=== PATIENT | female | born 1980 | race Two or more races ===

== ENCOUNTER 2019-08-24 10:00 | Inpatient (IN) | payer BC, MEDICAID ==
[~2019-08-24] VITALS: Ht 154.9 cm; Wt 76.2 kg
[2019-08-24 10:02] VITALS: BP 116/54
--- NOTE | 2019-08-24 10:05 | NUR ---
ED Nurse Note: Patient walked into ED from home c/o abdominal pain since last night radiating to back. patient denies n/v/d. patient unable to void at this time. patient provided with hospital gown.
--- NOTE | 2019-08-24 10:15 | NUR ---
HAND-OFF: Report given to Jaja GHOSH.
[2019-08-24] MEDS ORDERED: Dicyclomine HCl 10mg/5ml oral soln ORAL ONE (10:30)
[2019-08-24] MEDS ORDERED: Lidocaine 2% Visc 15ml soln ORAL ONE (10:30)
[2019-08-24] MEDS ORDERED: Mylanta II UD 30ml ORAL ONE (10:30)
[2019-08-24 10:46] LABS: BASOPHILS % (AUTO) 0.4 % (0.0-2.0); EOSINOPHILS % (AUTO) 0.5 % (0.0-3.0); HEMATOCRIT 34.2 % (37.0-47.0); HEMOGLOBIN 11.5 G/DL (12.0-16.0); LYMPHOCYTES % (AUTO) 12.6 % (20.0-45.0); MEAN CORPUSCULAR VOLUME 84 FL (80-99); MONOCYTES % (AUTO) 4.9 % (1.0-10.0); NEUTROPHILS % (AUTO) 81.6 % (45.0-75.0); PLATELET COUNT 268 K/UL (150-450); RED BLOOD COUNT 4.08 M/UL (4.20-5.40); RED CELL DISTRIBUTION WIDTH 11.9 % (11.6-14.8); WHITE BLOOD COUNT 10.2 K/UL (4.8-10.8)
[2019-08-24 10:56] LABS: APPEARANCE,URINE CLEAR; BILIRUBIN, URINE NEGATIVE (NEGATIVE); GLUCOSE, URINE (UA) NEGATIVE (NEGATIVE); KETONES,URINE NEGATIVE (NEGATIVE); LEUKOCYTE ESTERASE ,URINE 1+ (NEGATIVE); NITRITE,URINE NEGATIVE (NEGATIVE); PH,URINE 7 (4.5-8.0); PROTEIN,URINE NEGATIVE (NEGATIVE); UROBILINOGEN,URINE 1 MG/DL (0.0-1.0)
[2019-08-24 10:58] LABS: COLOR,URINE YELLOW
[2019-08-24 11:00] LABS: ANION GAP 11 mmol/L (5-15); BLOOD UREA NITROGEN 16 mg/dL (7-18); CALCIUM 8.5 MG/DL (8.5-10.1); CARBON DIOXIDE 23 MMOL/L (21-32); CHLORIDE 105 MMOL/L (98-107); CREATININE 0.7 MG/DL (0.55-1.30); POTASSIUM 4.1 MMOL/L (3.5-5.1); SODIUM 139 MMOL/L (136-145)
[2019-08-24 11:20] LABS: ALANINE AMINOTRANSFERASE 216 U/L (12-78); ALBUMIN 3.5 G/DL (3.4-5.0); ALBUMIN/GLOBULIN RATIO 0.9 (1.0-2.7); ALKALINE PHOSPHATASE 142 U/L (46-116); ASPARTATE AMINO TRANSFERASE 315 U/L (15-37); BILIRUBIN,DIRECT 0.7 MG/DL (0.0-0.3); BILIRUBIN,TOTAL 1.1 MG/DL (0.2-1.0)
[2019-08-24] MEDS ORDERED: Morphine Sulfate 4mg/ml Inj (IV USE ONLY) IVP ONE (11:30)
--- NOTE | 2019-08-24 11:31 | Emergency Room Report ---
History of Present Illness General Chief Complaint: Abdominal Pain Source: Patient Present Illness HPI Patient is a 38-year-old female presents after increased epigastric pain radiating to her back. Reports having prior history of similar symptoms in the past but not this severe. Pain is worse with supine position. Initially wax and wane but is currently constant. Denies any fever. Denies any vomiting. Pain is worse with food. Prior history of lower abdominal surgery. Denies any recent diarrhea. No recent cough. Previously been healthy. COVID-19 risk:Contact w/high r: No COVID-19 risk:Travel to affect: No Has patient experienced cr: No Allergies: Coded Allergies: SULFAMETHOXAZOLE (Verified Allergy, Unknown, 08/24/19) TRIMETHOPRIM (Verified Allergy, Unknown, 08/24/19) Uncoded Allergies: SULFA (Allergy, Unknown, 08/24/19) Patient History Past Medical History: see triage record Last Menstrual Period: 08/12/19 Now: No Reviewed Nursing Documentation: PMH: Agreed; PSxH: Agreed Nursing Documentation-PMH Past Medical History: No Stated History Review of Systems All Other Systems: negative except mentioned in HPI Physical Exam Vital Signs Date Time Temp Pulse Resp B/P (MAP) Pulse Ox O2 Delivery O2 Flow Rate FiO2 08/24/19 10:02 98.2 87 17 116/54 98 Room Air Sp02 EP Interpretation: reviewed, normal General Appearance: normal inspection, well appearing, no apparent distress, alert, obese Head: atraumatic ENT: normal ENT inspection, hearing grossly normal, normal voice Neck: normal inspection, full range of motion, supple, no bony tend Respiratory: normal inspection, lungs clear, normal breath sounds, no respiratory distress, no retraction, no wheezing Cardiovascular #1: regular rate, rhythm, no edema Gastrointestinal: normal bowel sounds, non tender, soft, no guarding, no hernia , tenderness - epiGastric tenderness Genitourinary: no CVA tenderness Musculoskeletal: normal inspection, back normal, normal range of motion Neurologic: alert, motor strength/tone normal, 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 Differential diagnosis include was not limited to ulcer, gastritis, pancreatitis, cholecystitis among others. Because of complexity of patient's case laboratory tests and imaging studies were ordered. Patient was noted to have markedly abnormal lipase as well as liver function test consistent with possible gallstone pancreatitis. Abdominal ultrasound was ordered. She was given pain medications. She started on IV fluids.Sonographic Zee sign is negative. Ultrasound imaging showed multiple gallstones including gallstone in the gallbladder neck. Laboratory testing showed markedly elevated lipase as well as liver function test consistent with possible gallstone pancreatitis. Dr. Fercho Zelaya was contacted for Dr. Barth due to panel phyisician. Labs Test 08/24/19 10:30 08/24/19 10:45 White Blood Count 10.2 K/UL (4.8-10.8) Red Blood Count 4.08 M/UL (4.20-5.40) Hemoglobin 11.5 G/DL (12.0-16.0) Hematocrit 34.2 % (37.0-47.0) Mean Corpuscular Volume 84 FL (80-99) Mean Corpuscular Hemoglobin 28.2 PG (27.0-31.0) Mean Corpuscular Hemoglobin Concent 33.6 G/DL (32.0-36.0) Red Cell Distribution Width 11.9 % (11.6-14.8) Platelet Count 268 K/UL (150-450) Mean Platelet Volume 6.5 FL (6.5-10.1) Neutrophils (%) (Auto) 81.6 % (45.0-75.0) Lymphocytes (%) (Auto) 12.6 % (20.0-45.0) Monocytes (%) (Auto) 4.9 % (1.0-10.0) Eosinophils (%) (Auto) 0.5 % (0.0-3.0) Basophils (%) (Auto) 0.4 % (0.0-2.0) Sodium Level 139 MMOL/L (136-145) Potassium Level 4.1 MMOL/L (3.5-5.1) Chloride Level 105 MMOL/L (98-107) Carbon Dioxide Level 23 MMOL/L (21-32) Anion Gap 11 mmol/L (5-15) Blood Urea Nitrogen 16 mg/dL (7-18) Creatinine 0.7 MG/DL (0.55-1.30) Estimat Glomerular Filtration Rate > 60 mL/min (>60) Glucose Level 118 MG/DL (74-106) Calcium Level 8.5 MG/DL (8.5-10.1) Total Bilirubin 1.1 MG/DL (0.2-1.0) Direct Bilirubin 0.7 MG/DL (0.0-0.3) Aspartate Amino Transf (AST/SGOT) 315 U/L (15-37) Alanine Aminotransferase (ALT/SGPT) 216 U/L (12-78) Alkaline Phosphatase 142 U/L (46-116) Troponin I 0.000 ng/mL (0.000-0.056) Total Protein 7.4 G/DL (6.4-8.2) Albumin 3.5 G/DL (3.4-5.0) Globulin 3.9 g/dL Albumin/Globulin Ratio 0.9 (1.0-2.7) Lipase 1023 U/L (73-393) Urine Color Yellow Urine Appearance Clear Urine pH 7 (4.5-8.0) Urine Specific [place] 1.010 (1.005-1.035) Urine Protein Negative (NEGATIVE) Urine Glucose (UA) Negative (NEGATIVE) Urine Ketones Negative (NEGATIVE) Urine Blood 2+ (NEGATIVE) Urine Nitrite Negative (NEGATIVE) Urine Bilirubin Negative (NEGATIVE) Urine Urobilinogen 1 MG/DL (0.0-1.0) Urine Leukocyte Esterase 1+ (NEGATIVE) Urine RBC 2-4 /HPF (0 - 2) Urine WBC 0-2 /HPF (0 - 2) Urine Squamous Epithelial Cells Few /LPF (NONE/OCC) Urine Bacteria Few /HPF (NONE) Urine HCG, Qualitative Negative (NEGATIVE) Last Vital Signs Date Time Temp Pulse Resp B/P (MAP) Pulse Ox O2 Delivery O2 Flow Rate FiO2 08/24/19 10:13 87 17 Room Air 08/24/19 10:02 98.2 116/54 (74) 98 Status: unchanged Disposition: ADMITTED INPATIENT Condition: Serious Scripts No Active Prescriptions or Reported Meds Referrals: NOT CHOSEN IPA/,REFERRING (PCP) Avelino Hawk MD Aug 24, 2019 11:31
--- NOTE | 2019-08-24 12:11 | Diagnostic Imaging Report ---
Indication: Abdominal pain Technique: Grayscale and duplex Doppler imaging of the abdomen performed. Comparison: None Findings: The liver is unremarkable except for small cyst in the right hepatic lobe measuring 2 cm. Doppler interrogation of the main portal vein shows patency with hepatopedal, monophasic flow. There is no biliary ductal dilatation identified. Gallbladder is notable for multiple stones. Sonographic Zee sign is negative per technologist. There demonstrated part of the pancreas, aorta and IVC show no definite abnormalities. Both kidneys appear unremarkable. There is no hydronephrosis. IMPRESSION: Cholelithiasis Liver cyst
--- NOTE | 2019-08-24 12:35 | General Progress Note ---
Assessment/Plan Assessment/Plan: gallstone pancreatitis npo ivf pain control MRCP ERCP if needed repeat labs in am surg consult Subjective Allergies: Coded Allergies: SULFAMETHOXAZOLE (Verified Allergy, Unknown, 08/24/19) TRIMETHOPRIM (Verified Allergy, Unknown, 08/24/19) Uncoded Allergies: SULFA (Allergy, Unknown, 08/24/19) Objective Last 24 Hour Vital Signs Date Time Temp Pulse Resp B/P (MAP) Pulse Ox O2 Delivery O2 Flow Rate FiO2 08/24/19 12:05 98.2 08/24/19 10:13 87 17 Room Air 08/24/19 10:02 98.2 87 17 116/54 (74) 98 Room Air 08/24/19 10:02 98.2 87 17 116/54 98 Room Air Laboratory Tests 08/24/19 10:30: White Blood Count 10.2, Red Blood Count 4.08L, Hemoglobin 11.5L, Hematocrit 34.2L, Mean Corpuscular Volume 84, Mean Corpuscular Hemoglobin 28.2, Mean Corpuscular Hemoglobin Concent 33.6, Red Cell Distribution Width 11.9, Platelet Count 268, Mean Platelet Volume 6.5, Neutrophils (%) (Auto) 81.6H, Lymphocytes ( %) (Auto) 12.6L, Monocytes (%) (Auto) 4.9, Eosinophils (%) (Auto) 0.5, Basophils (%) (Auto) 0.4, Sodium Level 139, Potassium Level 4.1, Chloride Level 105, Carbon Dioxide Level 23, Anion Gap 11, Blood Urea Nitrogen 16, Creatinine 0.7, Estimat Glomerular Filtration Rate > 60, Glucose Level 118H, Calcium Level 8.5, Total Bilirubin 1.1H, Direct Bilirubin 0.7H, Aspartate Amino Transf (AST/ SGOT) 315H, Alanine Aminotransferase (ALT/SGPT) 216H, Alkaline Phosphatase 142H , Troponin I 0.000, Total Protein 7.4, Albumin 3.5, Globulin 3.9, Albumin/ Globulin Ratio 0.9L, Lipase 1023H 08/24/19 10:45: Urine Color Yellow, Urine Appearance Clear, Urine pH 7, Urine Specific [place] 1.010, Urine Protein Negative, Urine Glucose (UA) Negative, Urine Ketones Negative, Urine Blood 2+H, Urine Nitrite Negative, Urine Bilirubin Negative, Urine Urobilinogen 1H, Urine Leukocyte Esterase 1+H, Urine RBC 2-4H, Urine WBC 0 -2, Urine Squamous Epithelial Cells Few, Urine Bacteria Few, Urine HCG, Qualitative Negative Height (Feet): 5 Height (Inches): 2.00 Weight (Pounds): 170 General Appearance: alert EENT: normal ENT inspection Neck: supple Cardiovascular: normal rate Respiratory/Chest: decreased breath sounds Abdomen: normal bowel sounds, non tender, soft Extremities: non-tender Kev Gross MD Aug 24, 2019 12:35
[2019-08-24 12:37] VITALS: BP 119/55
[2019-08-24] MEDS ORDERED: LR 1000ml 1,000 ML IV SCH (13:15)
[2019-08-24] MEDS ORDERED: DiphenhydrAMINE 25mg Tab ORAL PRN (13:15)
[2019-08-24] MEDS ORDERED: HYDROmorphone 1mg/ml Carpuject IVP PRN (13:15)
[2019-08-24] MEDS ORDERED: LORazepam Inj 2mg/ml 1ml IV PRN (13:15)
--- NOTE | 2019-08-24 13:15 | NUR ---
ED Nurse Note: Pt taken to MRI.
[2019-08-24 15:47] VITALS: BP 131/68
--- NOTE | 2019-08-24 15:53 | NUR ---
ED Nurse Note: Report given to Nicolas GHOSH.
--- NOTE | 2019-08-24 15:57 | Diagnostic Imaging Report ---
Indication: Abdominal pain. Cholelithiasis. Elevated lipase Technique: MRI of the abdomen was performed in a 1.5 Kate magnet. Pulse sequences obtained include coronal and axial T2 single shot fast spin echo breathhold and respiratory gated coronal T2 3-D M.R.C.P.; this data set was displayed in different projections or MIPs. In addition, multiple coronal oblique thin T2 weighted, fat saturated SE sequences obtained through the CBD. Comparison: None Findings: The biliary ducts are not dilated within the liver or at the level of the pancreas and nj hepatis. The CBD is normal in caliber. A portion of the mid CBD is not seen which is likely related to breathing artifact. There are multiple gallstones present. Pancreas is unremarkable. There are no signs of pancreatitis on this study. (Lipase is more sensitive then cross-sectional imaging for acute pancreatitis). There is a 2.8 cm cyst in the right lobe of the liver. There is no free fluid. IMPRESSION: No biliary ductal dilatation or evidence of choledocholithiasis. Short segment of the mid CBD not seen likely related to breathing artifact. Cholelithiasis. 2.8 cm liver cyst.
--- NOTE | 2019-08-24 16:16 | NUR ---
ED Nurse Note: Cleared by MD to be admitted and transported to [facility] floor. Pt transferred via [facility] all belongings. Pt stable upon transport.
--- NOTE | 2019-08-24 16:42 | History and Physical ---
History of Present Illness General Date patient seen: Aug 24, 2019 Time patient seen: 16:20 Reason for Hospitalization: Abdominal Pain Present Illness HPI 38 year old woman, no prior medical history except for mild obesity who presented to the ED with complaints of epigastric pain radiating to her back. She reports having prior history of similar symptoms in the past but not this severe. Pain is constant. Denies any fever, chills, nausea, vomiting. Pain is worse with food. Prior history of lower abdominal surgery. In ED she was found to have cholelithiasis and elevated lipase suggestive of gallstone pancreatitis. MRCP done while in ED without evidence of choledocholithiasis. Patient referred for medical admission. Denies alcohol or drug use. Family Hx: Multiple family members with GB removal Social Hx: No alcohol use Allergies: Coded Allergies: SULFAMETHOXAZOLE (Verified Allergy, Unknown, 08/24/19) TRIMETHOPRIM (Verified Allergy, Unknown, 08/24/19) Uncoded Allergies: SULFA (Allergy, Unknown, 08/24/19) Medication History No Active Prescriptions or Reported Meds Patient History Healthcare decision maker Resuscitation status Advanced Directive on File Review of Systems Constitutional: Denies: chills, fever Respiratory: Denies: cough, orthopnea Cardiovascular: Denies: chest pain, edema Gastrointestinal: Reports: abdominal pain; Denies: constipation, diarrhea, nausea, vomiting Genitourinary: Denies: dysuria Musculoskeletal: Denies: back pain, gout Skin: Denies: rash Neurological: Denies: headache Physical Exam General Appearance: no apparent distress, alert HEENT: atraumatic, anicteric Neck: normal alignment, supple Respiratory/Chest: lungs clear, normal breath sounds Cardiovascular/Chest: normal rate, regular rhythm Abdomen: soft, no organomegaly Extremities: non-tender, normal inspection Neurologic: no motor/sensory deficits, alert, oriented x 3 Last 24 Hour Vital Signs Date Time Temp Pulse Resp B/P (MAP) Pulse Ox O2 Delivery O2 Flow Rate FiO2 08/24/19 16:17 98.7 82 18 126/73 97 Room Air 08/24/19 15:47 98.2 80 18 131/68 99 Room Air 08/24/19 12:37 98.2 76 16 119/55 98 Room Air 08/24/19 12:05 98.2 08/24/19 10:13 87 17 Room Air 08/24/19 10:02 98.2 87 17 116/54 (74) 98 Room Air 08/24/19 10:02 98.2 87 17 116/54 98 Room Air Laboratory Tests Test 08/24/19 10:30 08/24/19 10:45 White Blood Count 10.2 K/UL (4.8-10.8) Red Blood Count 4.08 M/UL (4.20-5.40) L Hemoglobin 11.5 G/DL (12.0-16.0) L Hematocrit 34.2 % (37.0-47.0) L Mean Corpuscular Volume 84 FL (80-99) Mean Corpuscular Hemoglobin 28.2 PG (27.0-31.0) Mean Corpuscular Hemoglobin Concent 33.6 G/DL (32.0-36.0) Red Cell Distribution Width 11.9 % (11.6-14.8) Platelet Count 268 K/UL (150-450) Mean Platelet Volume 6.5 FL (6.5-10.1) Neutrophils (%) (Auto) 81.6 % (45.0-75.0) H Lymphocytes (%) (Auto) 12.6 % (20.0-45.0) L Monocytes (%) (Auto) 4.9 % (1.0-10.0) Eosinophils (%) (Auto) 0.5 % (0.0-3.0) Basophils (%) (Auto) 0.4 % (0.0-2.0) Sodium Level 139 MMOL/L (136-145) Potassium Level 4.1 MMOL/L (3.5-5.1) Chloride Level 105 MMOL/L (98-107) Carbon Dioxide Level 23 MMOL/L (21-32) Anion Gap 11 mmol/L (5-15) Blood Urea Nitrogen 16 mg/dL (7-18) Creatinine 0.7 MG/DL (0.55-1.30) Estimat Glomerular Filtration Rate > 60 mL/min (>60) Glucose Level 118 MG/DL (74-106) H Calcium Level 8.5 MG/DL (8.5-10.1) Total Bilirubin 1.1 MG/DL (0.2-1.0) H Direct Bilirubin 0.7 MG/DL (0.0-0.3) H Aspartate Amino Transf (AST/SGOT) 315 U/L (15-37) H Alanine Aminotransferase (ALT/SGPT) 216 U/L (12-78) H Alkaline Phosphatase 142 U/L (46-116) H Troponin I 0.000 ng/mL (0.000-0.056) Total Protein 7.4 G/DL (6.4-8.2) Albumin 3.5 G/DL (3.4-5.0) Globulin 3.9 g/dL Albumin/Globulin Ratio 0.9 (1.0-2.7) L Lipase 1023 U/L (73-393) H Urine Color Yellow Urine Appearance Clear Urine pH 7 (4.5-8.0) Urine Specific [place] 1.010 (1.005-1.035) Urine Protein Negative (NEGATIVE) Urine Glucose (UA) Negative (NEGATIVE) Urine Ketones Negative (NEGATIVE) Urine Blood 2+ (NEGATIVE) H Urine Nitrite Negative (NEGATIVE) Urine Bilirubin Negative (NEGATIVE) Urine Urobilinogen 1 MG/DL (0.0-1.0) H Urine Leukocyte Esterase 1+ (NEGATIVE) H Urine RBC 2-4 /HPF (0 - 2) H Urine WBC 0-2 /HPF (0 - 2) Urine Squamous Epithelial Cells Few /LPF (NONE/OCC) Urine Bacteria Few /HPF (NONE) Urine HCG, Qualitative Negative (NEGATIVE) Height (Feet): 5 Height (Inches): 2.00 Weight (Pounds): 170 Medications Current Medications Medications (Trade) Dose Ordered Sig/Maureen Route PRN Reason Start Time Stop Time Status Last Admin Dose Admin Acetaminophen (Tylenol) 650 mg Q4H PRN ORAL Mild Pain (Pain Scale 1-3) 08/24/19 13:15 09/23/19 13:14 Dextrose (Dextrose 50%) 25 ml Q30M PRN IV Hypoglycemia 08/24/19 13:15 11/22/19 13:14 Dextrose (Dextrose 50%) 50 ml Q30M PRN IV Hypoglycemia 08/24/19 13:15 11/22/19 13:14 Diphenhydramine HCl (Benadryl) 25 mg Q6H PRN ORAL Itching/Pruritis 08/24/19 13:15 09/23/19 13:14 Heparin Sodium (Porcine) (Heparin 5000 units/ml) 5,000 units EVERY 12 HOURS SUBQ 08/24/19 21:00 5/7/20 20:59 Hydromorphone HCl (Dilaudid) 1 mg Q4H PRN IVP Moderate Pain (Pain Scale 4-6) 08/24/19 13:15 08/31/19 13:14 Hydromorphone HCl (Dilaudid) 2 mg Q4H PRN IVP Severe Pain (Pain Scale 7-10) 08/24/19 13:15 08/31/19 13:14 Lactated Ringer's 1,000 ml @ 125 mls/hr Q8H IV 08/24/19 18:00 09/23/19 17:59 Lorazepam (Ativan 2mg/ml 1ml) 0.5 mg Q4H PRN IV For Anxiety 08/24/19 13:15 08/31/19 13:14 Ondansetron HCl (Zofran) 4 mg Q6H PRN IVP Nausea & Vomiting 08/24/19 13:15 09/23/19 13:14 Assessment/Plan Assessment/Plan: 38 year old woman with mild obesity who presented to ED with abdominal pain radiating to her back. #Gallstone pancreatitis #Obesity -admit to medical service -NPO, IV fluids with LR -Symptomatic care, IV Dilaudid and Zofran -repeat CMP and lipase in AM -MRCP results reviewed -GI and Surgery consulted, possible cholecystectomy this admission -Lifestyle modifications as outpatient VTE PPx HSQ Full Code I spent 70 minutes on this patient's case, and >50% was dedicated to counseling and/or care coordination. Jamal Crawley MD Aug 24, 2019 16:42
--- NOTE | 2019-08-24 16:47 | NUR ---
NURSE NOTES: I received telephone report DAVINA Wilkinson form ER; patient came the floor by reji; alert x4; on room air, no sing of distress and shortness of breath; no sing of chest pain; IV Left AC 20 flushes well; belongings singed by transferring and receiving nurse; side rails up x2, breaks engaged, bed at lowest position, call light within reach; patient NPO, patient aware and sing at the bed side; will call MD to get admission order;
[2019-08-24 16:50] VITALS: BP 100/73
--- NOTE | 2019-08-24 17:08 | Consultation ---
History of Present Illness General Date patient seen: Aug 24, 2019 Reason for Hospitalization: Abdominal Pain Present Illness HPI This is a very pleasant 38-year-old female with no prior medical conditions who presented to [facility] complaining of worsening abdominal pain with associated nausea. Patient states about a week ago she had an episode of epigastric right upper quadrant abdominal pain but resolved on its own. She did well since then recovered but yesterday began to have worsening her epigastric abdominal pain with nausea but no emesis. Came to emergency room for evaluation at which time was identified to have pancreatitis with etiology being cholelithiasis given work-up and findings. Surgery was called to evaluate and assist with care. Patient seen, patient evaluated, chart reviewed. Patient states that pain is better after given narcotic pain medication but now that is wearing off she starts no pain again. Currently no nausea vomiting fever chills Allergies: Coded Allergies: SULFAMETHOXAZOLE (Verified Allergy, Unknown, 08/24/19) TRIMETHOPRIM (Verified Allergy, Unknown, 08/24/19) Uncoded Allergies: SULFA (Allergy, Unknown, 08/24/19) Medication History No Active Prescriptions or Reported Meds Patient History History Provided By: Patient, Medical Record, PMD Healthcare decision maker Resuscitation status Advanced Directive on File Past Medical/Surgical History Past Medical/Surgical History: (1) Gallstone (2) Acute gallstone pancreatitis (3) Pancreatitis Review of Systems Review of Symptoms General ROS: no weight loss or fever Psychological ROS: no depression or mood changes, no memory loss Ophthalmic ROS: no visual changes or eye irritation ENT ROS: no nasal congestion, hearing loss, dizziness Allergy and Immunology ROS: no allergic symptoms or urticaria Hematological and Lymphatic ROS: no swollen glands, unusual bleeding or bruising Endocrine ROS: no polyuria, polydipsia, weight changes, temperature intolerance Respiratory ROS: no cough, shortness of breath, or wheezing Cardiovascular ROS: no chest pain or dyspnea on exertion Gastrointestinal ROS: abdominal pain, no bright red blood in stool. Musculoskeletal ROS: no myalgias or arthralgias Neurological ROS: no TIA or stroke symptoms Dermatological ROS: no new or changing skin lesions, rashes or pruritis Physical Exam Physical Exam General appearance: alert, cooperative, no distress, appears stated age Head: Normocephalic, without obvious abnormality, atraumatic Eyes: conjunctivae/corneas clear. PERRL, EOM's intact. Fundi benign Throat: Lips, mucosa, and tongue normal. Teeth and gums normal Neck: supple, symmetrical, trachea midline, no adenopathy, thyroid: not enlarged, symmetric, no tenderness/mass/nodules, no carotid bruit and no JVD Lungs: clear to auscultation bilaterally Heart: regular rate and rhythm, S1, S2 normal, no murmur, click, rub or gallop Abdomen: soft, epi and ruq tender. Bowel sounds normal. No masses, no organomegaly Extremities: extremities normal, atraumatic, no cyanosis or edema Pulses: 2+ and symmetric Skin: Skin color, texture, turgor normal. No rashes or lesions Neurologic: Grossly normal Last 24 Hour Vital Signs Date Time Temp Pulse Resp B/P (MAP) Pulse Ox O2 Delivery O2 Flow Rate FiO2 08/24/19 16:17 98.7 82 18 126/73 97 Room Air 08/24/19 15:47 98.2 80 18 131/68 99 Room Air 08/24/19 12:37 98.2 76 16 119/55 98 Room Air 08/24/19 12:05 98.2 08/24/19 10:13 87 17 Room Air 08/24/19 10:02 98.2 87 17 116/54 (74) 98 Room Air 08/24/19 10:02 98.2 87 17 116/54 98 Room Air Laboratory Tests Test 08/24/19 10:30 08/24/19 10:45 White Blood Count 10.2 K/UL (4.8-10.8) Red Blood Count 4.08 M/UL (4.20-5.40) L Hemoglobin 11.5 G/DL (12.0-16.0) L Hematocrit 34.2 % (37.0-47.0) L Mean Corpuscular Volume 84 FL (80-99) Mean Corpuscular Hemoglobin 28.2 PG (27.0-31.0) Mean Corpuscular Hemoglobin Concent 33.6 G/DL (32.0-36.0) Red Cell Distribution Width 11.9 % (11.6-14.8) Platelet Count 268 K/UL (150-450) Mean Platelet Volume 6.5 FL (6.5-10.1) Neutrophils (%) (Auto) 81.6 % (45.0-75.0) H Lymphocytes (%) (Auto) 12.6 % (20.0-45.0) L Monocytes (%) (Auto) 4.9 % (1.0-10.0) Eosinophils (%) (Auto) 0.5 % (0.0-3.0) Basophils (%) (Auto) 0.4 % (0.0-2.0) Sodium Level 139 MMOL/L (136-145) Potassium Level 4.1 MMOL/L (3.5-5.1) Chloride Level 105 MMOL/L (98-107) Carbon Dioxide Level 23 MMOL/L (21-32) Anion Gap 11 mmol/L (5-15) Blood Urea Nitrogen 16 mg/dL (7-18) Creatinine 0.7 MG/DL (0.55-1.30) Estimat Glomerular Filtration Rate > 60 mL/min (>60) Glucose Level 118 MG/DL (74-106) H Calcium Level 8.5 MG/DL (8.5-10.1) Total Bilirubin 1.1 MG/DL (0.2-1.0) H Direct Bilirubin 0.7 MG/DL (0.0-0.3) H Aspartate Amino Transf (AST/SGOT) 315 U/L (15-37) H Alanine Aminotransferase (ALT/SGPT) 216 U/L (12-78) H Alkaline Phosphatase 142 U/L (46-116) H Troponin I 0.000 ng/mL (0.000-0.056) Total Protein 7.4 G/DL (6.4-8.2) Albumin 3.5 G/DL (3.4-5.0) Globulin 3.9 g/dL Albumin/Globulin Ratio 0.9 (1.0-2.7) L Lipase 1023 U/L (73-393) H Urine Color Yellow Urine Appearance Clear Urine pH 7 (4.5-8.0) Urine Specific [place] 1.010 (1.005-1.035) Urine Protein Negative (NEGATIVE) Urine Glucose (UA) Negative (NEGATIVE) Urine Ketones Negative (NEGATIVE) Urine Blood 2+ (NEGATIVE) H Urine Nitrite Negative (NEGATIVE) Urine Bilirubin Negative (NEGATIVE) Urine Urobilinogen 1 MG/DL (0.0-1.0) H Urine Leukocyte Esterase 1+ (NEGATIVE) H Urine RBC 2-4 /HPF (0 - 2) H Urine WBC 0-2 /HPF (0 - 2) Urine Squamous Epithelial Cells Few /LPF (NONE/OCC) Urine Bacteria Few /HPF (NONE) Urine HCG, Qualitative Negative (NEGATIVE) Height (Feet): 5 Height (Inches): 2.00 Weight (Pounds): 170 Medications Current Medications Medications (Trade) Dose Ordered Sig/Maureen Route PRN Reason Start Time Stop Time Status Last Admin Dose Admin Acetaminophen (Tylenol) 650 mg Q4H PRN ORAL Mild Pain (Pain Scale 1-3) 08/24/19 13:15 09/23/19 13:14 Dextrose (Dextrose 50%) 25 ml Q30M PRN IV Hypoglycemia 08/24/19 13:15 11/22/19 13:14 Dextrose (Dextrose 50%) 50 ml Q30M PRN IV Hypoglycemia 08/24/19 13:15 11/22/19 13:14 Diphenhydramine HCl (Benadryl) 25 mg Q6H PRN ORAL Itching/Pruritis 08/24/19 13:15 09/23/19 13:14 Heparin Sodium (Porcine) (Heparin 5000 units/ml) 5,000 units EVERY 12 HOURS SUBQ 08/24/19 21:00 10/08/19 20:59 Hydromorphone HCl (Dilaudid) 1 mg Q4H PRN IVP Moderate Pain (Pain Scale 4-6) 08/24/19 13:15 08/31/19 13:14 Hydromorphone HCl (Dilaudid) 2 mg Q4H PRN IVP Severe Pain (Pain Scale 7-10) 08/24/19 13:15 08/31/19 13:14 Lactated Ringer's 1,000 ml @ 125 mls/hr Q8H IV 08/24/19 18:00 09/23/19 17:59 Lorazepam (Ativan 2mg/ml 1ml) 0.5 mg Q4H PRN IV For Anxiety 08/24/19 13:15 08/31/19 13:14 Ondansetron HCl (Zofran) 4 mg Q6H PRN IVP Nausea & Vomiting 08/24/19 13:15 09/23/19 13:14 Assessment/Plan Problem List: (1) Acute gallstone pancreatitis Assessment & Plan: 38F acute gallstone pancreatitis afebrile, HD stable lft's noted lip noted US noted MRI noted npo iv fluids iv abx trend labs discussed with patient care and plan. she is very clear that she does not feel comfortable with another episode and would prefer surgical intervention prior to d/c once improved plan for lap vs open chlole thank you will follow with recs The biliary ducts are not dilated within the liver or at the level of the pancreas and nj hepatis. The CBD is normal in caliber. A portion of the mid CBD is not seen which is likely related to breathing artifact. There are multiple gallstones present. Pancreas is unremarkable. There are no signs of pancreatitis on this study. (Lipase is more sensitive then cross-sectional imaging for acute pancreatitis). There is a 2.8 cm cyst in the right lobe of the liver. There is no free fluid. IMPRESSION: No biliary ductal dilatation or evidence of choledocholithiasis. Short segment of the mid CBD not seen likely related to breathing artifact. Cholelithiasis. 2.8 cm liver cyst. ICD Codes: K85.10 - Biliary acute pancreatitis without necrosis or infection SNOMED: [id number] AdrianviolaRuben Aug 24, 2019 17:08
--- NOTE | 2019-08-24 17:08 | Pre-Procedure Note/Attestation ---
Pre-Procedure Note/Attestation Complete Prior to Procedure Planned Procedure: not applicable Procedure Narrative: laparoscopic cholecystectomy possible open Indications for Procedure Pre-Operative Diagnosis: acute gallstone pancreatitis Attestation I attest that I discussed the nature of the procedure; its benefits; risks and complications; and alternatives (and the risks and benefits of such alternatives ), prior to the procedure, with the patient (or the patient's legal transportation services representative). I attest that, if there was a reasonable possibility of needing a blood transfusion, the patient (or the patient's legal transportation services representative) was given the [facility] standardized written summary, pursuant to the Seth Sammy Blood Safety Act ([place] Health and Safety Code # 1645, as amended). I attest that I re-evaluated the patient just prior to the surgery and that there has been no change in the patient's H&P, except as documented below: Ruben Billy Aug 24, 2019 17:08
[2019-08-24] MEDS: LR 1000ml 1,000 ML IV SCH (17:33)
--- NOTE | 2019-08-24 19:27 | NUR ---
HAND-OFF: Report given to DAVINA Urias. Patient signed the consent Laparoscopic Cholecystectomy. Patient and incoming nurse is aware that patient should stay NPO for the procedure.
--- NOTE | 2019-08-24 19:30 | NUR ---
NURSE NOTES: RECEIVED PATIENT FROM DAVINA CALDERÓN. PATIENT IS AWAKE, AAOX4, ON ROOM AIR, NO ACUTE DISTRESS NOTED. IV INTACT AND PATENT. BED IS LOCKED AND LOW, BED ALARMS ACTIVE, SIDE RAILS UPX2 AND CALL LIGHT IS WITHIN REACH. WILL CONTINUE TO MONITOR.
[2019-08-24 20:00] VITALS: BP 106/67
[2019-08-24] MEDS: Piperacillin/Tazobactam 3.375 GM in NS 110 ML IVPB SCH (21:31)
[2019-08-24] MEDS: Heparin 5000 units/ml inj SUBQ SCH (21:31)
[2019-08-25] VITALS: BP 111/66
[2019-08-25] MEDS: LR 1000ml 1,000 ML IV SCH ×4 (02:36→22:11)
[2019-08-25 04:00] VITALS: BP 97/56
[2019-08-25 06:25] LABS: BASOPHILS % (AUTO) 0.7 % (0.0-2.0); EOSINOPHILS % (AUTO) 1.6 % (0.0-3.0); HEMATOCRIT 31.7 % (37.0-47.0); LYMPHOCYTES % (AUTO) 32.8 % (20.0-45.0); MEAN CORPUSCULAR VOLUME 84 FL (80-99); MONOCYTES % (AUTO) 6.7 % (1.0-10.0); NEUTROPHILS % (AUTO) 58.1 % (45.0-75.0); PLATELET COUNT 250 K/UL (150-450); RED BLOOD COUNT 3.77 M/UL (4.20-5.40); RED CELL DISTRIBUTION WIDTH 12.3 % (11.6-14.8); WHITE BLOOD COUNT 7.4 K/UL (4.8-10.8)
[2019-08-25] MEDS: Piperacillin/Tazobactam 3.375 GM in NS 110 ML IVPB SCH ×3 (06:35→21:14)
[2019-08-25 06:58] LABS: ALANINE AMINOTRANSFERASE 342 U/L (12-78); ALBUMIN/GLOBULIN RATIO 0.9 (1.0-2.7); ALKALINE PHOSPHATASE 189 U/L (46-116); AMYLASE 92 U/L (25-115); ANION GAP 13 mmol/L (5-15); ASPARTATE AMINO TRANSFERASE 320 U/L (15-37); BILIRUBIN,TOTAL 1.8 MG/DL (0.2-1.0); BLOOD UREA NITROGEN 12 mg/dL (7-18); CALCIUM 8.2 MG/DL (8.5-10.1); CARBON DIOXIDE 21 MMOL/L (21-32); CHLORIDE 109 MMOL/L (98-107); CREATININE 0.6 MG/DL (0.55-1.30); POTASSIUM 3.7 MMOL/L (3.5-5.1); SODIUM 143 MMOL/L (136-145)
--- NOTE | 2019-08-25 07:07 | NUR ---
HAND-OFF: Report given to DAVINA Lyons.
--- NOTE | 2019-08-25 07:25 | NUR ---
NURSE NOTES: Patient awake, alert x4; on room air, no sign of distress and shortness of breath; no sing of chest pain; IV Left-Wrist 22G Zosyn running; patient NPO for Laparoscopic Cholecystectomy; side rails up x2, breaks engaged, bed at lowest position, call light within reach; will keep monitoring.
[2019-08-25 08:00] VITALS: BP 117/72
[2019-08-25] MEDS: Heparin 5000 units/ml inj SUBQ SCH ×2 (09:00→20:48)
--- NOTE | 2019-08-25 09:20 | General Progress Note ---
Assessment/Plan Assessment/Plan: gallstone pancreatitis npo ivf pain control MRCP>>> reviewed might need ERCP despite MRCP finding given rising LFTS d/w surg>> will repeat labs for tomorrow and decide Subjective Allergies: Coded Allergies: SULFAMETHOXAZOLE (Verified Allergy, Unknown, 08/24/19) TRIMETHOPRIM (Verified Allergy, Unknown, 08/24/19) Uncoded Allergies: SULFA (Allergy, Unknown, 08/24/19) Objective Last 24 Hour Vital Signs Date Time Temp Pulse Resp B/P (MAP) Pulse Ox O2 Delivery O2 Flow Rate FiO2 08/25/19 08:00 98.3 77 18 117/72 (87) 98 08/25/19 04:00 97.8 67 17 97/56 (70) 98 08/25/19 00:00 98.5 69 17 111/66 (81) 99 08/24/19 21:00 Room Air 08/24/19 20:00 98.4 72 18 106/67 (80) 100 08/24/19 18:44 98.0 08/24/19 17:45 Room Air 08/24/19 16:50 98.0 75 18 100/73 (82) 99 08/24/19 16:17 98.7 82 18 126/73 97 Room Air 08/24/19 15:47 98.2 80 18 131/68 99 Room Air 08/24/19 12:37 98.2 76 16 119/55 98 Room Air 08/24/19 12:05 98.2 08/24/19 10:13 87 17 Room Air 08/24/19 10:02 98.2 87 17 116/54 (74) 98 Room Air 08/24/19 10:02 98.2 87 17 116/54 98 Room Air Intake and Output 08/24/19 08/25/19 19:00 07:00 Intake Total 1485.0 ml Balance 1485.0 ml Intake IV Total 1485.0 ml # Voids 2 3 Laboratory Tests 08/24/19 10:30: White Blood Count 10.2, Red Blood Count 4.08L, Hemoglobin 11.5L, Hematocrit 34.2L, Mean Corpuscular Volume 84, Mean Corpuscular Hemoglobin 28.2, Mean Corpuscular Hemoglobin Concent 33.6, Red Cell Distribution Width 11.9, Platelet Count 268, Mean Platelet Volume 6.5, Neutrophils (%) (Auto) 81.6H, Lymphocytes ( %) (Auto) 12.6L, Monocytes (%) (Auto) 4.9, Eosinophils (%) (Auto) 0.5, Basophils (%) (Auto) 0.4, Sodium Level 139, Potassium Level 4.1, Chloride Level 105, Carbon Dioxide Level 23, Anion Gap 11, Blood Urea Nitrogen 16, Creatinine 0.7, Estimat Glomerular Filtration Rate > 60, Glucose Level 118H, Calcium Level 8.5, Total Bilirubin 1.1H, Direct Bilirubin 0.7H, Aspartate Amino Transf (AST/ SGOT) 315H, Alanine Aminotransferase (ALT/SGPT) 216H, Alkaline Phosphatase 142H , Troponin I 0.000, Total Protein 7.4, Albumin 3.5, Globulin 3.9, Albumin/ Globulin Ratio 0.9L, Lipase 1023H 08/24/19 10:45: Urine Color Yellow, Urine Appearance Clear, Urine pH 7, Urine Specific [place] 1.010, Urine Protein Negative, Urine Glucose (UA) Negative, Urine Ketones Negative, Urine Blood 2+H, Urine Nitrite Negative, Urine Bilirubin Negative, Urine Urobilinogen 1H, Urine Leukocyte Esterase 1+H, Urine RBC 2-4H, Urine WBC 0 -2, Urine Squamous Epithelial Cells Few, Urine Bacteria Few, Urine HCG, Qualitative Negative 08/25/19 05:20: White Blood Count 7.4, Red Blood Count 3.77L, Hemoglobin 11.0L, Hematocrit 31.7L , Mean Corpuscular Volume 84, Mean Corpuscular Hemoglobin 29.2, Mean Corpuscular Hemoglobin Concent 34.7, Red Cell Distribution Width 12.3, Platelet Count 250, Mean Platelet Volume 6.6, Neutrophils (%) (Auto) 58.1, Lymphocytes (% ) (Auto) 32.8, Monocytes (%) (Auto) 6.7, Eosinophils (%) (Auto) 1.6, Basophils ( %) (Auto) 0.7, Sodium Level 143, Potassium Level 3.7, Chloride Level 109H, Carbon Dioxide Level 21, Anion Gap 13, Blood Urea Nitrogen 12, Creatinine 0.6, Estimat Glomerular Filtration Rate > 60, Glucose Level 99, Calcium Level 8.2L, Total Bilirubin 1.8H, Direct Bilirubin 1.0H, Aspartate Amino Transf (AST/SGOT) 320H, Alanine Aminotransferase (ALT/SGPT) 342H, Alkaline Phosphatase 189H, Total Protein 6.5, Albumin 3.0L, Globulin 3.5, Albumin/Globulin Ratio 0.9L, Lipase 108, Amylase Level 92 Height (Feet): 5 Height (Inches): 2.00 Weight (Pounds): 169 General Appearance: alert EENT: normal ENT inspection Neck: supple Respiratory/Chest: lungs clear Abdomen: soft, hypoactive bowel sounds, tender Extremities: non-tender Kev Gross MD Aug 25, 2019 09:20
[2019-08-25 12:00] VITALS: BP 121/80
--- NOTE | 2019-08-25 12:04 | NUR ---
CASE MANAGEMENT:INITIAL REVIEW 38 YR OLD FEMALE WALKED IN TO ER FROM HOME CC;ABDOMINAL PAIN SI;PANCREATITIS. GALLSTONES. 98.7 87 18 100/73 97% ON RA AST 315 ALT 216 ALK PHOS 142 LIPASE 1023 UA+ BLOOD, UROBILI, LEUKOCYTE, RBC ABD US ~ Cholelithiasis, Liver cyst ABD MRI ~ Cholelithiasis. 2.8 cm liver cyst. IS;LIDOCAINE PO ONCE BENTYL PO ONCE MOM PO ONCE MORPHINE IV ONCE IVF NS BOLUS ADMITTED TO MED SURG MED SURG STATUS DCP;FROM HOME Addendum: 08/25/19 at 1252 by KVNG TARIQ LVN LVN INTERQUAL MET
--- NOTE | 2019-08-25 13:32 | Surgery Progress Note ---
Surgery Progress Note Subjective Additional Comments lft's up lip nml still with discomfort Objective Last 24 Hour Vital Signs Date Time Temp Pulse Resp B/P (MAP) Pulse Ox O2 Delivery O2 Flow Rate FiO2 08/25/19 13:09 98.3 08/25/19 09:00 Room Air 08/25/19 08:00 98.3 77 18 117/72 (87) 98 08/25/19 04:00 97.8 67 17 97/56 (70) 98 08/25/19 00:00 98.5 69 17 111/66 (81) 99 08/24/19 21:00 Room Air 08/24/19 20:00 98.4 72 18 106/67 (80) 100 08/24/19 17:45 Room Air 08/24/19 16:50 98.0 75 18 100/73 (82) 99 08/24/19 16:17 98.7 82 18 126/73 97 Room Air 08/24/19 15:47 98.2 80 18 131/68 99 Room Air I&O Intake and Output 08/24/19 08/25/19 19:00 07:00 Intake Total 1485.0 ml Balance 1485.0 ml Intake IV Total 1485.0 ml # Voids 2 3 Cardiovascular: RSR Respiratory: clear Abdomen: soft, non-tender, present bowel sounds, non-distended Extremities: no cyanosis Laboratory Tests Test 08/25/19 05:20 White Blood Count 7.4 K/UL (4.8-10.8) Red Blood Count 3.77 M/UL (4.20-5.40) L Hemoglobin 11.0 G/DL (12.0-16.0) L Hematocrit 31.7 % (37.0-47.0) L Mean Corpuscular Volume 84 FL (80-99) Mean Corpuscular Hemoglobin 29.2 PG (27.0-31.0) Mean Corpuscular Hemoglobin Concent 34.7 G/DL (32.0-36.0) Red Cell Distribution Width 12.3 % (11.6-14.8) Platelet Count 250 K/UL (150-450) Mean Platelet Volume 6.6 FL (6.5-10.1) Neutrophils (%) (Auto) 58.1 % (45.0-75.0) Lymphocytes (%) (Auto) 32.8 % (20.0-45.0) Monocytes (%) (Auto) 6.7 % (1.0-10.0) Eosinophils (%) (Auto) 1.6 % (0.0-3.0) Basophils (%) (Auto) 0.7 % (0.0-2.0) Sodium Level 143 MMOL/L (136-145) Potassium Level 3.7 MMOL/L (3.5-5.1) Chloride Level 109 MMOL/L (98-107) H Carbon Dioxide Level 21 MMOL/L (21-32) Anion Gap 13 mmol/L (5-15) Blood Urea Nitrogen 12 mg/dL (7-18) Creatinine 0.6 MG/DL (0.55-1.30) Estimat Glomerular Filtration Rate > 60 mL/min (>60) Glucose Level 99 MG/DL (74-106) Calcium Level 8.2 MG/DL (8.5-10.1) L Total Bilirubin 1.8 MG/DL (0.2-1.0) H Direct Bilirubin 1.0 MG/DL (0.0-0.3) H Aspartate Amino Transf (AST/SGOT) 320 U/L (15-37) H Alanine Aminotransferase (ALT/SGPT) 342 U/L (12-78) H Alkaline Phosphatase 189 U/L (46-116) H Total Protein 6.5 G/DL (6.4-8.2) Albumin 3.0 G/DL (3.4-5.0) L Globulin 3.5 g/dL Albumin/Globulin Ratio 0.9 (1.0-2.7) L Amylase Level 92 U/L (25-115) Lipase 108 U/L (73-393) Plan Problems: (1) Acute gallstone pancreatitis Assessment & Plan: 38F acute gallstone pancreatitis afebrile, HD stable lft's noted lip noted US noted MRI noted npo iv fluids iv abx trend labs discussed with patient care and plan. she is very clear that she does not feel comfortable with another episode and would prefer surgical intervention prior to d/c once improved plan for lap vs open chlole thank you will follow with recs The biliary ducts are not dilated within the liver or at the level of the pancreas and nj hepatis. The CBD is normal in caliber. A portion of the mid CBD is not seen which is likely related to breathing artifact. There are multiple gallstones present. Pancreas is unremarkable. There are no signs of pancreatitis on this study. (Lipase is more sensitive then cross-sectional imaging for acute pancreatitis). There is a 2.8 cm cyst in the right lobe of the liver. There is no free fluid. IMPRESSION: No biliary ductal dilatation or evidence of choledocholithiasis. Short segment of the mid CBD not seen likely related to breathing artifact. Cholelithiasis. 2.8 cm liver cyst. Ruben Billy Aug 25, 2019 13:32
[2019-08-25 16:00] VITALS: BP 104/68
--- NOTE | 2019-08-25 16:04 | General Progress Note ---
Assessment/Plan Assessment/Plan: 38 year old woman with mild obesity who presented to ED with abdominal pain radiating to her back. #Gallstone pancreatitis #Obesity -cont. in-pt service -NPO, IV fluids with LR -Symptomatic care, IV Dilaudid and Zofran -cont. to monitor CMP and lipase -MRCP results reviewed -GI and Surgery consulted, pt for ashwini prior to d/c once symptoms improved, cont. to monitor LFTs, pain control, may need ERCP, per GI -Lifestyle modifications as outpatient VTE PPx HSQ Full Code Time spent on encounter: 36 mins, >50% on counseling, coordination of care. Time of note doesn't reflect time of encounter. Subjective Constitutional: Denies: no symptoms, chills, diaphoresis, fever, malaise, weakness, other HEENT: Denies: no symptoms, eye pain, blurred vision, tearing, double vision, ear pain, ear discharge, nose pain, nose congestion, throat pain, throat swelling, mouth pain, mouth swelling, other Cardiovascular: Denies: no symptoms, chest pain, edema, irregular heart rate, lightheadedness, palpitations, syncope, other Respiratory: Denies: no symptoms, cough, orthopnea, shortness of breath, SOB with excertion, SOB at rest, sputum, stridor, wheezing, other Gastrointestinal/Abdominal: Denies: no symptoms, abdomen distended, abdominal pain, black stools, tarry stools, blood in stool, constipated, diarrhea, difficulty swallowing, nausea, poor appetite, poor fluid intake, rectal bleeding , vomiting, other Genitourinary: Denies: no symptoms, burning, discharge, frequency, flank pain, hematuria, incontinence, pain, urgency, other Neurologic/Psychiatric: Denies: no symptoms, anxiety, depressed, emotional problems, headache, numbness, paresthesia, pre-existing deficit, seizure, tingling, tremors, weakness, other Endocrine: Denies: no symptoms, excessive sweating, flushing, intolerance to cold, intolerance to heat, increased hunger, increased thirst, increased urine, unexplained weight gain, unexplained weight loss, other Allergies: Coded Allergies: SULFAMETHOXAZOLE (Verified Allergy, Unknown, 08/24/19) TRIMETHOPRIM (Verified Allergy, Unknown, 08/24/19) Uncoded Allergies: SULFA (Allergy, Unknown, 08/24/19) Subjective No acute events overnight. Patient cont. to have abd pain. No N/V. Objective Last 24 Hour Vital Signs Date Time Temp Pulse Resp B/P (MAP) Pulse Ox O2 Delivery O2 Flow Rate FiO2 08/25/19 13:09 98.3 08/25/19 12:00 97.8 84 18 121/80 (94) 98 08/25/19 09:00 Room Air 08/25/19 08:00 98.3 77 18 117/72 (87) 98 08/25/19 04:00 97.8 67 17 97/56 (70) 98 08/25/19 00:00 98.5 69 17 111/66 (81) 99 08/24/19 21:00 Room Air 08/24/19 20:00 98.4 72 18 106/67 (80) 100 08/24/19 17:45 Room Air 08/24/19 16:50 98.0 75 18 100/73 (82) 99 08/24/19 16:17 98.7 82 18 126/73 97 Room Air Intake and Output 08/24/19 08/25/19 19:00 07:00 Intake Total 1485.0 ml Balance 1485.0 ml Intake IV Total 1485.0 ml # Voids 2 3 Laboratory Tests 08/25/19 05:20: White Blood Count 7.4, Red Blood Count 3.77L, Hemoglobin 11.0L, Hematocrit 31.7L , Mean Corpuscular Volume 84, Mean Corpuscular Hemoglobin 29.2, Mean Corpuscular Hemoglobin Concent 34.7, Red Cell Distribution Width 12.3, Platelet Count 250, Mean Platelet Volume 6.6, Neutrophils (%) (Auto) 58.1, Lymphocytes (% ) (Auto) 32.8, Monocytes (%) (Auto) 6.7, Eosinophils (%) (Auto) 1.6, Basophils ( %) (Auto) 0.7, Sodium Level 143, Potassium Level 3.7, Chloride Level 109H, Carbon Dioxide Level 21, Anion Gap 13, Blood Urea Nitrogen 12, Creatinine 0.6, Estimat Glomerular Filtration Rate > 60, Glucose Level 99, Calcium Level 8.2L, Total Bilirubin 1.8H, Direct Bilirubin 1.0H, Aspartate Amino Transf (AST/SGOT) 320H, Alanine Aminotransferase (ALT/SGPT) 342H, Alkaline Phosphatase 189H, Total Protein 6.5, Albumin 3.0L, Globulin 3.5, Albumin/Globulin Ratio 0.9L, Amylase Level 92, Lipase 108 Height (Feet): 5 Height (Inches): 2.00 Weight (Pounds): 169 Objective General: NAD, A&O x 3 HEENT: NCAT, EOMi, PEERLA, nares patent and no symmetrical, no tonsillar exudates, mucous membranes moist CV: RRR, no murmurs, rubs, or gallops Pulm: CTAB, No wheezes, rhonchi, or rales, no accessory muscle usage or conversational dyspnea GI: Soft, nontender, nondistended, bowel sounds present Neuro: CN 2-12 grossly intact bilaterally, no focal signs. Ext: No lower extremity edema bilaterally Skin: no rashes lesions or ulcers Msk: Joints symmetrical in upper extremity and lower extremity bilaterally, no joint swelling. Lymph: No lymphadenopathy in upper extremity and lower extremity Parish Garza M.D. Aug 25, 2019 16:04
--- NOTE | 2019-08-25 19:28 | NUR ---
HAND-OFF: Report given to DAVINA Urias.
--- NOTE | 2019-08-25 19:41 | NUR ---
NURSE NOTES: RECEIVED PATIENT FROM DAVINA CALDERÓN. PATIENT IS AWAKE, AAOX4, ON ROOM AIR, NO ACUTE DISTRESS NOTED. IV ON BOTH WRISTS INTACT AND PATENT, RUNNING LR @125 AND ZOSYN. PATIENT DENIES PAIN. BED IS LOCKED AND LOW, BED ALARMS ACTIVE, SIDE RAILS UPX2 AND CALL LIGHT IS WITHIN REACH. WILL CONTINUE TO MONITOR.
[2019-08-25 20:00] VITALS: BP 104/64
[2019-08-26] VITALS (13 sets, daily range): BP systolic 100–117; BP diastolic 55–70
[2019-08-26 06:30] LABS: BASOPHILS % (AUTO) 0.4 % (0.0-2.0); EOSINOPHILS % (AUTO) 0.8 % (0.0-3.0); HEMATOCRIT 31.9 % (37.0-47.0); HEMOGLOBIN 10.8 G/DL (12.0-16.0); LYMPHOCYTES % (AUTO) 26.8 % (20.0-45.0); MEAN CORPUSCULAR VOLUME 84 FL (80-99); MONOCYTES % (AUTO) 3.9 % (1.0-10.0); PLATELET COUNT 251 K/UL (150-450); RED BLOOD COUNT 3.78 M/UL (4.20-5.40); RED CELL DISTRIBUTION WIDTH 12.1 % (11.6-14.8); WHITE BLOOD COUNT 10.6 K/UL (4.8-10.8)
[2019-08-26] MEDS: Piperacillin/Tazobactam 3.375 GM in NS 110 ML IVPB SCH ×3 (07:01→22:06)
[2019-08-26 07:02] LABS: ALANINE AMINOTRANSFERASE 244 U/L (12-78); ALBUMIN/GLOBULIN RATIO 0.8 (1.0-2.7); ALKALINE PHOSPHATASE 166 U/L (46-116); AMYLASE 83 U/L (25-115); ANION GAP 13 mmol/L (5-15); ASPARTATE AMINO TRANSFERASE 104 U/L (15-37); BILIRUBIN,TOTAL 1.1 MG/DL (0.2-1.0); BLOOD UREA NITROGEN 10 mg/dL (7-18); CALCIUM 8.4 MG/DL (8.5-10.1); CARBON DIOXIDE 20 MMOL/L (21-32); CHLORIDE 106 MMOL/L (98-107); CREATININE 0.7 MG/DL (0.55-1.30); POTASSIUM 3.9 MMOL/L (3.5-5.1); SODIUM 139 MMOL/L (136-145)
[2019-08-26 07:03] LABS: BILIRUBIN,DIRECT 0.3 MG/DL (0.0-0.3)
--- NOTE | 2019-08-26 07:05 | NUR ---
HAND-OFF: Report given to DAVINA Lyons.
--- NOTE | 2019-08-26 07:26 | NUR ---
NURSE NOTES: Patient alert x4; on room air, no sing of distress and shortness of breath; no sing of chest pain; IV Left-Wrist and Right Wrist Zosyn and Lactated Ringer running; patient NPO, sing at the door and patient is aware; side rails up x2, breaks engaged, bed at lowest position; call light within reach; will keep monitoring.
[2019-08-26] MEDS: Heparin 5000 units/ml inj SUBQ SCH ×2 (08:38→22:18)
[2019-08-26] MEDS: LR 1000ml 1,000 ML IV SCH ×2 (08:59→17:34)
--- NOTE | 2019-08-26 09:10 | General Progress Note ---
Assessment/Plan Assessment/Plan: gallstone pancreatitis npo ivf pain control MRCP>>> reviewed plan surg for today ERCP if needed Subjective ROS Limited/Unobtainable: No Allergies: Coded Allergies: SULFAMETHOXAZOLE (Verified Allergy, Unknown, 08/24/19) TRIMETHOPRIM (Verified Allergy, Unknown, 08/24/19) Uncoded Allergies: SULFA (Allergy, Unknown, 08/24/19) Objective Last 24 Hour Vital Signs Date Time Temp Pulse Resp B/P (MAP) Pulse Ox O2 Delivery O2 Flow Rate FiO2 08/26/19 09:02 98.1 08/26/19 08:00 98.1 75 20 106/66 (79) 100 08/26/19 04:00 97.8 74 18 102/55 (71) 98 08/26/19 00:00 97.9 76 18 102/61 (75) 99 08/25/19 21:00 Room Air 08/25/19 20:00 98.0 77 18 104/64 (77) 98 08/25/19 16:00 98.0 74 18 104/68 (80) 98 08/25/19 12:00 97.8 84 18 121/80 (94) 98 Intake and Output 08/25/19 08/26/19 19:00 07:00 Intake Total 2115.0 ml 1610.0 ml Balance 2115.0 ml 1610.0 ml Intake IV Total 2115.0 ml 1610.0 ml # Voids 3 3 Laboratory Tests 08/26/19 05:25: White Blood Count 10.6, Red Blood Count 3.78L, Hemoglobin 10.8L, Hematocrit 31.9L, Mean Corpuscular Volume 84, Mean Corpuscular Hemoglobin 28.5, Mean Corpuscular Hemoglobin Concent 33.7, Red Cell Distribution Width 12.1, Platelet Count 251, Mean Platelet Volume 6.7, Neutrophils (%) (Auto) 68.0, Lymphocytes (% ) (Auto) 26.8, Monocytes (%) (Auto) 3.9, Eosinophils (%) (Auto) 0.8, Basophils ( %) (Auto) 0.4, Sodium Level 139, Potassium Level 3.9, Chloride Level 106, Carbon Dioxide Level 20L, Anion Gap 13, Blood Urea Nitrogen 10, Creatinine 0.7, Estimat Glomerular Filtration Rate > 60, Glucose Level 67L, Calcium Level 8.4L, Total Bilirubin 1.1H, Direct Bilirubin 0.3, Aspartate Amino Transf (AST/SGOT) 104H, Alanine Aminotransferase (ALT/SGPT) 244H, Alkaline Phosphatase 166H, Total Protein 6.6, Albumin 3.0L, Globulin 3.6, Albumin/Globulin Ratio 0.8L, Amylase Level 83, Lipase 81 Height (Feet): 5 Height (Inches): 2.00 Weight (Pounds): 168 General Appearance: alert EENT: normal ENT inspection Neck: supple Cardiovascular: normal rate Respiratory/Chest: decreased breath sounds Abdomen: soft, hypoactive bowel sounds Extremities: non-tender Kev Gross MD Aug 26, 2019 09:10
--- NOTE | 2019-08-26 10:45 | NUR ---
NURSE NOTES: Patient left the floor by bed for Surgery; Patient's name, ID band verified. Patient stable upon leaving the floor.
[2019-08-26] MEDS ORDERED: Iothalamate Meglumine 60% 50ML INJ ONE (11:19)
[2019-08-26] MEDS ORDERED: LR 1000ml ONE (12:00)
[2019-08-26] MEDS ORDERED: Rocuronium Bromide 50mg/5ml Inj IV ONE (12:00)
[2019-08-26] MEDS ORDERED: Sterile Water Irrig 1000ml IRRIG ONE (12:00)
[2019-08-26] MEDS ORDERED: Lidocaine 1% MPF 10mg/ml 5ml ONE (12:00)
[2019-08-26] MEDS ORDERED: Dexamethasone 4mg/ml vial ONE (12:00)
[2019-08-26] MEDS ORDERED: Sodium Chloride 10ml vial INJ ONE (12:00)
[2019-08-26] MEDS ORDERED: Propofol 200mg/20ml IV ONE (12:00)
[2019-08-26] MEDS ORDERED: fentaNYL 100 mcg/2 mL IV ONE (12:01)
[2019-08-26] MEDS ORDERED: LR 1000ml 1,000 ML IVLG SCH (12:32)
--- NOTE | 2019-08-26 12:32 | Anethesia Preoperative Eval ---
Anesthesia Pre-op PMH/ROS General Date of Evaluation: Aug 26, 2019 Time of Evaluation: 11:54 Anesthesiologist: Jonny ASA Score: ASA 2 - Emergency Mallampati Score Class I : Soft palate, uvula, fauces, pillars visible Class II: Soft palate, uvula, fauces visible Class III: Soft palate, base of uvula visible Class IV: Only hard plate visible Mallampati Classification: Class II Surgeon: Mariajose Diagnosis: Abd Pain Surgical Procedure: Laparoscopic Cholecystectomy Anesthesia History: none Family History: no anesthesia problems Allergies: Coded Allergies: SULFAMETHOXAZOLE (Verified Allergy, Unknown, 08/24/19) TRIMETHOPRIM (Verified Allergy, Unknown, 08/24/19) Uncoded Allergies: SULFA (Allergy, Unknown, 08/24/19) Medications: see eMAR Patient NPO?: Yes NPO Date: Aug 24, 2019 NPO Time: 1600 Past Medical History Gastrointestinal/Genitourinary: Reports: other - Pncreatitis Hematology/Immune: Reports: anemia Anesthesia Pre-op Phys. Exam Physician Exam Last Vital Signs Date Time Temp Pulse Resp B/P (MAP) Pulse Ox O2 Delivery O2 Flow Rate FiO2 08/26/19 09:02 98.1 08/26/19 09:00 Room Air 08/26/19 08:00 75 20 106/66 (79) 100 Constitutional: NAD Neurologic: CN 2-12 intact Cardiovascular: RRR Respiratory: CTA Gastrointestinal: S/NT/ND Airway Exam Mallampati Score: Class II MO: full ROM: full Teeth: intact Anesthesia Pre-op A/P Labs Hematology Test 08/26/19 05:25 White Blood Count 10.6 K/UL (4.8-10.8) Red Blood Count 3.78 M/UL (4.20-5.40) L Hemoglobin 10.8 G/DL (12.0-16.0) L Hematocrit 31.9 % (37.0-47.0) L Mean Corpuscular Volume 84 FL (80-99) Mean Corpuscular Hemoglobin 28.5 PG (27.0-31.0) Mean Corpuscular Hemoglobin Concent 33.7 G/DL (32.0-36.0) Red Cell Distribution Width 12.1 % (11.6-14.8) Platelet Count 251 K/UL (150-450) Mean Platelet Volume 6.7 FL (6.5-10.1) Neutrophils (%) (Auto) 68.0 % (45.0-75.0) Lymphocytes (%) (Auto) 26.8 % (20.0-45.0) Monocytes (%) (Auto) 3.9 % (1.0-10.0) Eosinophils (%) (Auto) 0.8 % (0.0-3.0) Basophils (%) (Auto) 0.4 % (0.0-2.0) Chemistry Test 08/26/19 05:25 Sodium Level 139 MMOL/L (136-145) Potassium Level 3.9 MMOL/L (3.5-5.1) Chloride Level 106 MMOL/L (98-107) Carbon Dioxide Level 20 MMOL/L (21-32) L Anion Gap 13 mmol/L (5-15) Blood Urea Nitrogen 10 mg/dL (7-18) Creatinine 0.7 MG/DL (0.55-1.30) Estimat Glomerular Filtration Rate > 60 mL/min (>60) Glucose Level 67 MG/DL (74-106) L Calcium Level 8.4 MG/DL (8.5-10.1) L Total Bilirubin 1.1 MG/DL (0.2-1.0) H Direct Bilirubin 0.3 MG/DL (0.0-0.3) Aspartate Amino Transf (AST/SGOT) 104 U/L (15-37) H Alanine Aminotransferase (ALT/SGPT) 244 U/L (12-78) H Alkaline Phosphatase 166 U/L (46-116) H Total Protein 6.6 G/DL (6.4-8.2) Albumin 3.0 G/DL (3.4-5.0) L Globulin 3.6 g/dL Albumin/Globulin Ratio 0.8 (1.0-2.7) L Amylase Level 83 U/L (25-115) Lipase 81 U/L (73-393) Risk Assessment & Plan Assessment: ASA 2E Plan: GA, SED, GlideScope Go Status Change Before Surgery: No Pre-Antibiotics Dru Gram Ancef IV Given Within 1 Hr of Incision: Yes Time Given: 12:06 Antonio Fuller MD Aug 26, 2019 12:31
[2019-08-26] MEDS ORDERED: fentaNYL 100 mcg/2 mL IV PRN (12:45)
[2019-08-26] MEDS ORDERED: Atropine Sulfate 0.4mg/ml inj IVP PRN (12:45)
[2019-08-26] MEDS ORDERED: Meperidine 25mg/0.5ml Inj (FOR RIGORS ONLY) IV PRN (12:45)
[2019-08-26] MEDS ORDERED: HYDROcodone/Acetamin 5/325 tab ORAL PRN ×2 (12:45→13:45)
[2019-08-26] MEDS ORDERED: HYDROcodone/Acetamin 7.5/325 tab ORAL PRN (12:45)
[2019-08-26] MEDS ORDERED: Acetaminophen (Non formulary) 100 ML IV ONE (12:45)
[2019-08-26] MEDS ORDERED: Labetalol 5mg/ml 20ml vial IV PRN (12:45)
[2019-08-26] MEDS ORDERED: DiphenhydrAMINE 50mg/ml Inj IVP PRN (12:45)
[2019-08-26] MEDS ORDERED: oxyCODONE HCL/Acetaminophen 5/325mg ORAL PRN (12:45)
[2019-08-26] MEDS ORDERED: Hydromorphone 0.5mg/0.5ml inj IVP PRN (12:45)
[2019-08-26] MEDS ORDERED: LORazepam Inj 2mg/ml 1ml IV PRN (12:45)
[2019-08-26] MEDS ORDERED: Metoclopramide 10mg/2ml Inj IVP PRN (12:45)
[2019-08-26] MEDS ORDERED: Midazolam 2mg/2ml Inj IVP PRN (12:45)
[2019-08-26] MEDS ORDERED: Neostigmine 1mg/ml 10ml Inj ONE (12:55)
[2019-08-26] MEDS ORDERED: Glycopyrrolate 0.2mg/ml 1ml Vial ONE (12:55)
[2019-08-26] MEDS ORDERED: Surgicel 4in x 8in TOPIC ONE (13:00)
[2019-08-26] MEDS ORDERED: NS Irrig 2000ml IRRIG ONE (13:04)
--- NOTE | 2019-08-26 13:22 | General Progress Note ---
Assessment/Plan Assessment/Plan: 38 year old woman with mild obesity who presented to ED with abdominal pain radiating to her back. #Gallstone pancreatitis #Obesity -cont. in-pt medical service -NPO, IV fluids with LR -Symptomatic care, IV Dilaudid and Zofran -cont. to monitor CMP and lipase -MRCP results reviewed -GI and Surgery consulted -OR today for cholecystectomy -ERCP per GI -Lifestyle modifications as outpatient VTE PPx HSQ Full Code Time spent on encounter: 36 mins, >50% on counseling, coordination of care. Time of note doesn't reflect time of encounter. Subjective Allergies: Coded Allergies: SULFAMETHOXAZOLE (Verified Allergy, Unknown, 08/24/19) TRIMETHOPRIM (Verified Allergy, Unknown, 08/24/19) Uncoded Allergies: SULFA (Allergy, Unknown, 08/24/19) Subjective Follow-up for gallstone pancreatitis. No acute events overnight. Pt states that pain has improved. No N/V, S OB, CP, cough, F/C. OR today Objective Last 24 Hour Vital Signs Date Time Temp Pulse Resp B/P (MAP) Pulse Ox O2 Delivery O2 Flow Rate FiO2 08/26/19 09:02 98.1 08/26/19 09:00 Room Air 08/26/19 08:00 98.1 75 20 106/66 (79) 100 08/26/19 04:00 97.8 74 18 102/55 (71) 98 08/26/19 00:00 97.9 76 18 102/61 (75) 99 08/25/19 21:00 Room Air 08/25/19 20:00 98.0 77 18 104/64 (77) 98 08/25/19 16:00 98.0 74 18 104/68 (80) 98 Intake and Output 08/25/19 08/26/19 19:00 07:00 Intake Total 2115.0 ml 1610.0 ml Balance 2115.0 ml 1610.0 ml Intake IV Total 2115.0 ml 1610.0 ml # Voids 3 3 Laboratory Tests 08/26/19 05:25: White Blood Count 10.6, Red Blood Count 3.78L, Hemoglobin 10.8L, Hematocrit 31.9L, Mean Corpuscular Volume 84, Mean Corpuscular Hemoglobin 28.5, Mean Corpuscular Hemoglobin Concent 33.7, Red Cell Distribution Width 12.1, Platelet Count 251, Mean Platelet Volume 6.7, Neutrophils (%) (Auto) 68.0, Lymphocytes (% ) (Auto) 26.8, Monocytes (%) (Auto) 3.9, Eosinophils (%) (Auto) 0.8, Basophils ( %) (Auto) 0.4, Sodium Level 139, Potassium Level 3.9, Chloride Level 106, Carbon Dioxide Level 20L, Anion Gap 13, Blood Urea Nitrogen 10, Creatinine 0.7, Estimat Glomerular Filtration Rate > 60, Glucose Level 67L, Calcium Level 8.4L, Total Bilirubin 1.1H, Direct Bilirubin 0.3, Aspartate Amino Transf (AST/SGOT) 104H, Alanine Aminotransferase (ALT/SGPT) 244H, Alkaline Phosphatase 166H, Total Protein 6.6, Albumin 3.0L, Globulin 3.6, Albumin/Globulin Ratio 0.8L, Amylase Level 83, Lipase 81 Height (Feet): 5 Height (Inches): 1.00 Weight (Pounds): 168 Objective General: NAD, A&O x 3 HEENT: NCAT, EOMi, PEERLA, nares patent and no symmetrical, no tonsillar exudates, mucous membranes moist CV: RRR, no murmurs, rubs, or gallops Pulm: CTAB, No wheezes, rhonchi, or rales, no accessory muscle usage or conversational dyspnea GI: Soft, nontender, nondistended, bowel sounds present, no guarding/rebound Ext: No lower extremity edema bilaterally Skin: no rashes lesions or ulcers Parish Garza M.D. Aug 26, 2019 13:22
--- NOTE | 2019-08-26 13:31 | Brief Operative Note ---
Immediate Post Operative Note Operative Note Pre-op Diagnosis: acute gallstone pancreatitis Procedure: lap ashwini Post-op Diagnosis: same as pre-op Surgeon: yohannes Anesthesiologist: vic Anesthesia: general, local Specimen: yes Complications: none Condition: stable Fluids: see records Estimated Blood Loss: minimal Implant(s) used?: No Ruben Billy Aug 26, 2019 13:31
--- NOTE | 2019-08-26 13:35 | Immediate Post-Op Evaluation ---
Immediate Post-Op Evalulation Immediate Post-Op Evalulation Procedure: Laparoscopic Cholecystectomy Date of Evaluation: Aug 26, 2019 Time of Evaluation: 13:49 IV Fluids: 600 LR Blood Products: 0 Estimated Blood Loss: 75 Urinary Output: 0 Blood Pressure Systolic: 113 Blood Pressure Diastolic: 70 Pulse Rate: 86 Respiratory Rate: 16 O2 Sat by Pulse Oximetry: 100 Temperature (Fahrenheit): 98.5 Pain Score (1-10): 2 Nausea: No Vomiting: No Complications 0 Patient Status: awake, reacts, patent, extubated, none Hydration Status: adequate Dru Gram Ancef IV Given Within 1 Hr of Incision: Yes Time Given: 12:06 Antonio Fuller MD Aug 26, 2019 13:35
--- NOTE | 2019-08-26 13:37 | NUR ---
CASE MANAGEMENT:REVIEW SI;S/P LAPAROSCOPIC OSMAN W/CHOLANGIOGRAM TODAY 98.5 90 20 107/63 100% 3L NC AST 104 ALT 244 ALK PHOS 166 IS;PERCOCET PO NORCO PO DILAUDID PO HYDRALAZINE IV LABETALOL IV ZOFRAN IV REGLAN IV IN POST OP RECOVERY WILL TRANSFER TO MED SURG DCP;FROM HOME
[2019-08-26] MEDS ORDERED: Sennosides 8.6mg tab ORAL PRN (13:45)
[2019-08-26] MEDS ORDERED: Milk of Magnesia 30ml Ud ORAL PRN (13:45)
[2019-08-26] MEDS ORDERED: DiphenhydrAMINE 25mg Tab ORAL PRN (13:45)
[2019-08-26] MEDS ORDERED: Morphine Sulfate 4mg/ml Inj (IV USE ONLY) IVP PRN (13:45)
[2019-08-26] MEDS ORDERED: HYDROcodone/Acetamin 10/325 tab ORAL PRN (13:45)
[2019-08-26] MEDS ORDERED: Morphine Sulfate 2mg/ml Inj(IV/IM USE ONLY) IVP PRN ×2 (13:45)
--- NOTE | 2019-08-26 14:50 | NUR ---
NURSE NOTES: I received report from DAVINA Asher; patient came back to the after Laparoscopic Cholecystectomy possible open; patient alert x4; on Nasal Cannula 3 Liters, no sing of distress and shortness of breath; IV Left-Wrist and Right Wrist flushes well; dressing slightly stained; Vital sings taken T 98.2 BP 112/62 P 89 sat 100% Pain 9; side rails up x2, breaks engaged, bed at lowest position, call light within reach;
--- NOTE | 2019-08-26 14:54 | NUR ---
NURSE NOTES: I called RT to bring us Incentive Spirometer; waiting for RT;
--- NOTE | 2019-08-26 14:56 | NUR ---
NURSE NOTES: SCD in place; Neuro check done; will keep monitoring.
--- NOTE | 2019-08-26 16:08 | NUR ---
NURSE NOTES: Patient requested for Jello; provided and patient tolerated well;
--- NOTE | 2019-08-26 16:30 | NUR ---
NURSE NOTES: Patient had toast with jam and prune juice; patient tolerated well; patient able to urinate; will keep monitoring.
--- NOTE | 2019-08-26 16:45 | Operative Note - Dictated ---
DATE OF OPERATION: 08/26/2019 PREOPERATIVE DIAGNOSIS: Acute gallstone pancreatitis. POSTOPERATIVE DIAGNOSIS: Acute gallstone pancreatitis. OPERATION PERFORMED: Laparoscopic cholecystectomy with intraoperative cholangiogram. ATTENDING SURGEON: Ruben Billy M.D. TERMINAL BLOCK ASSEMBLER: None. ANESTHESIOLOGIST: Antonio Fuller M.D. ANESTHESIA: General JEWELRY BENCH WORKER plus local. ESTIMATED BLOOD LOSS: Minimal. IV FLUIDS: Please see anesthesia records. COMPLICATIONS: None. DRAINS: None. COUNTS: Sponge and needle count correct x2. SPECIMENS: Gallbladder and contained stones sent to pathology for review. WOUND CLASSIFICATION: Class 3. ANTIBIOTICS: The patient is on scheduled IV antibiotics for acute infectious process. INDICATIONS FOR PROCEDURE: This is a very pleasant 38-year-old female who presented to [facility] ED complaining of worsening right upper quadrant, epigastric abdominal pain with associated nausea. The patient was identified to have significant elevated LFTs and lipase greater than 1000. Ultrasound demonstrated cholelithiasis and MRI demonstrated no evidence of choledocholithiasis. The patient's liver functions initially elevated on hospital day #2, but then began to trend down. As they were trending down, the lipase normalized and the patient's symptoms improved. A long discussion was had with the patient regarding her care plan. The risks, benefits, and alternatives of surgical intervention as an inpatient versus elective outpatient was discussed with the patient in detail. The patient was very adamant that she does not feel comfortable going home given the recent episodes and does not want another episode, has children to take care of and other family obligations, and is very concerned for having another episode given the above findings, understanding the potential risks of again gallstone pancreatitis, acute event. Given these findings, surgery was indicated and recommended and the patient consented to the procedure, which was performed on 08/26/2019. OPERATIVE NOTE: The patient was taken to the operating room and placed on the operating table in supine position with bilateral arms out. All bony prominences were well padded. SCDs placed. Preoperative time-out was taken identifying the patient, procedure, operative staff, and surgical staff. No Cota catheter was inserted given the patient voided prior to entering the operating room. General anesthesia was induced and the patient was intubated. The abdomen was clipped, prepped, and draped in the standard surgical fashion. General anesthesia was induced and the patient was intubated. Local anesthetic was infiltrated throughout the incision and port sites for the patient's comfort. An infraumbilical incision was made using a fresh #11 scalpel abd carried down to the fascia, which was incised. Entry into the abdomen was obtained using open Chela technique. A 12 mm Chela trocar was inserted and the abdomen was insufflated 12 to 15 mmHg. The patient tolerated the insufflation well. Laparoscope was inserted and the abdomen was inspected. No injury from initial trocar placement noted. The patient was placed in reverse Trendelenburg with left side down. Secondary trocars were placed under direct visualization beginning with a 12 mm subxiphoid followed by two 5 mm right subcostal ports. Gallbladder was identified and had omental inflammatory adhesions to it. Omental adhesions were sharply dissected down and dome of the gallbladder was identified. Dome of the gallbladder was grasped using most lateral port and retracted over the liver. Infundibulum was identified and grasped using the midclavicular port and retracted towards the right lower quadrant. Gentle dissection of the infundibulum identified the cystic duct and the artery clearly. Critical view was obtained without complication. Once critical view was obtained, decision was made to proceed with cholangiogram. A single clip was placed at the infundibulum cystic duct junction. A small incision was made in the cystic duct using laparoscopic scissors and the bowel was identified. Cholangiogram catheter was inserted and cholangiogram was performed. No filling defect was identified. The cystic duct, common bile duct, right and left common hepatic ducts as well as good flow into the small bowel were identified without complication. No filling defects noted. No other abnormalities noted. No injury noted. No complication noted. At this time, the cholangiogram catheter was removed and the cystic duct was doubly clipped and divided. The cystic artery was doubly clipped and divided. Following this, gallbladder was removed off the liver bed with electrocautery without complication. Gallbladder was placed in endoscopic retrieval bag and removed from the abdomen using the subxiphoid port. The abdomen was irrigated and suctioned clear. Hemostasis was obtained from the gallbladder fossa using electrocautery. Surgicel was left in the gallbladder fossa. At this time, we began the conclusion of the procedure. Secondary trocars were removed under direct visualization followed by the umbilical trocar site. The abdomen was desufflated. Umbilical trocar site and subxiphoid trocar site fascia were reapproximated using [id number] #0 Vicryl sutures. The remaining skin incisions reapproximated using 4-0 Monocryl subcuticular interrupted sutures. Steri-Strips were applied followed by dressings. The patient tolerated the procedure well, was extubated, and taken to postanesthetic care unit in stable condition. Ruben Billy M.D. DR: FÁTIMA JOB#: [id number] CC:
[2019-08-26] MEDS: Docusate 100mg cap ORAL SCH (17:37)
--- NOTE | 2019-08-26 17:50 | NUR ---
NURSE NOTES: Patient urinated 2nd time;
--- NOTE | 2019-08-26 18:10 | NUR ---
NURSE NOTES: Patient had dinner, tolerated well; patient had sever pain and Dilaudid 2mg given; will keep monitoring.
--- NOTE | 2019-08-26 19:10 | NUR ---
NURSE NOTES: I received order from MD Crum to DC Lactated Ringer fluid and TKO; order carried out as given;
--- NOTE | 2019-08-26 19:24 | NUR ---
HAND-OFF: Report given to DAVINA Hays.
--- NOTE | 2019-08-26 19:27 | NUR ---
HAND-OFF: Report given to DAVINA Hays.
--- NOTE | 2019-08-26 19:30 | NUR ---
NURSE NOTES: Patient awake in bed, alert and oriented x4, on pain scale of 4/10 on lap ashwini sites. Will medicate as ordered. With IV access on both arms. Instructed patient to use call light for assistance. Bed in lowest, lock engaged and alarm on. Will continue plan of care.
[2019-08-27] VITALS: BP 95/52
[2019-08-27 04:00] VITALS: BP 96/59
[2019-08-27] MEDS: Piperacillin/Tazobactam 3.375 GM in NS 110 ML IVPB SCH ×2 (05:29→14:00)
[2019-08-27 06:21] LABS: BASOPHILS % (AUTO) 0.4 % (0.0-2.0); EOSINOPHILS % (AUTO) 0.1 % (0.0-3.0); HEMATOCRIT 32.5 % (37.0-47.0); LYMPHOCYTES % (AUTO) 19.8 % (20.0-45.0); MEAN CORPUSCULAR VOLUME 85 FL (80-99); MONOCYTES % (AUTO) 5.7 % (1.0-10.0); NEUTROPHILS % (AUTO) 74.2 % (45.0-75.0); PLATELET COUNT 307 K/UL (150-450); RED BLOOD COUNT 3.84 M/UL (4.20-5.40); RED CELL DISTRIBUTION WIDTH 12.3 % (11.6-14.8); WHITE BLOOD COUNT 14.6 K/UL (4.8-10.8)
[2019-08-27 06:45] LABS: ALANINE AMINOTRANSFERASE 206 U/L (12-78); ALBUMIN 3.3 G/DL (3.4-5.0); ALBUMIN/GLOBULIN RATIO 0.9 (1.0-2.7); ALKALINE PHOSPHATASE 161 U/L (46-116); AMYLASE 82 U/L (25-115); ANION GAP 11 mmol/L (5-15); ASPARTATE AMINO TRANSFERASE 84 U/L (15-37); BILIRUBIN,TOTAL 0.8 MG/DL (0.2-1.0); CALCIUM 8.6 MG/DL (8.5-10.1); CARBON DIOXIDE 26 MMOL/L (21-32); CHLORIDE 106 MMOL/L (98-107); CREATININE 0.7 MG/DL (0.55-1.30); POTASSIUM 4.2 MMOL/L (3.5-5.1); SODIUM 143 MMOL/L (136-145)
[2019-08-27 06:54] LABS: BLOOD UREA NITROGEN 8 mg/dL (7-18)
--- NOTE | 2019-08-27 06:57 | 48 Hour Post Anesthesia Eval ---
Post Anesthesia Evaluation Procedure: Laparoscopic Cholecystectomy Date of Evaluation: Aug 27, 2019 Time of Evaluation: 06:12 Blood Pressure Systolic: 96 0: 59 Pulse Rate: 57 Respiratory Rate: 18 Temperature (Fahrenheit): 98.1 O2 Sat by Pulse Oximetry: 97 Airway: patent Nausea: No Vomiting: No Pain Intensity: 2 Hydration Status: adequate Cardiopulmonary Status: Stable Mental Status/LOC: patient returned to baseline Follow-up Care/Observations: 0 Post-Anesthesia Complications: 0 Follow-up care needed: N/A Antonio Fuller MD Aug 27, 2019 06:57
--- NOTE | 2019-08-27 07:41 | NUR ---
HAND-OFF: Report given to DAVINA Hurley.
--- NOTE | 2019-08-27 07:46 | NUR ---
NURSE NOTES: received report from DAVINA Cordero, patient in bed, a&Ox4, verbally responsive, no respiratory distress noted. pain on abd. IV on Left [id number] saline lock. intact. surgical site intact. ambulatory. bed in the lowest position and locked. call light within reach, will continue to provide plan of care.
[2019-08-27 08:00] VITALS: BP 115/67
[2019-08-27] MEDS: Docusate 100mg cap ORAL SCH (08:14)
[2019-08-27] MEDS: Heparin 5000 units/ml inj SUBQ SCH (08:17)
--- NOTE | 2019-08-27 09:15 | General Progress Note ---
Assessment/Plan Assessment/Plan: gallstone pancreatitis pain control MRCP>>> reviewed s/p surg improving LFTS post op care fu surg recs Subjective Allergies: Coded Allergies: SULFAMETHOXAZOLE (Verified Allergy, Unknown, 08/24/19) TRIMETHOPRIM (Verified Allergy, Unknown, 08/24/19) Uncoded Allergies: SULFA (Allergy, Unknown, 08/24/19) Objective Last 24 Hour Vital Signs Date Time Temp Pulse Resp B/P (MAP) Pulse Ox O2 Delivery O2 Flow Rate FiO2 08/27/19 08:00 98.0 77 20 115/67 (83) 98 08/27/19 06:57 57 18 97 08/27/19 04:00 98.1 57 18 96/59 (71) 97 08/27/19 00:00 98.1 83 16 95/52 (66) 96 08/26/19 21:00 Room Air 08/26/19 20:00 98.2 78 20 100/56 (71) 96 08/26/19 18:07 98.3 08/26/19 16:00 98.3 81 18 112/66 (81) 99 08/26/19 14:50 98.2 89 20 112/62 (79) 100 08/26/19 14:31 98.1 08/26/19 14:25 98.1 89 18 105/63 100 Nasal Cannula 3 08/26/19 14:15 79 15 107/63 100 Nasal Cannula 3 08/26/19 14:10 98.5 08/26/19 14:01 89 16 112/64 100 Nasal Cannula 3 08/26/19 13:52 90 20 109/61 100 Nasal Cannula 3 08/26/19 13:42 75 18 117/63 100 Simple Mask 6 08/26/19 13:38 74 20 111/66 100 Simple Mask 6 08/26/19 13:35 86 16 100 08/26/19 13:33 98.5 85 27 113/70 100 Simple Mask 6 Intake and Output 08/26/19 08/27/19 19:00 07:00 Intake Total 2247.5 ml 332.5 ml Output Total 10 ml Balance 2237.5 ml 332.5 ml Intake Oral 480 ml IV Total 1767.5 ml 82.5 ml Other 250 ml Output Estimated Blood Loss 10 ml # Voids 2 2 Laboratory Tests 08/27/19 05:40: White Blood Count 14.6H, Red Blood Count 3.84L, Hemoglobin 11.0L, Hematocrit 32.5L, Mean Corpuscular Volume 85, Mean Corpuscular Hemoglobin 28.7, Mean Corpuscular Hemoglobin Concent 33.8, Red Cell Distribution Width 12.3, Platelet Count 307, Mean Platelet Volume 6.6, Neutrophils (%) (Auto) 74.2, Lymphocytes (% ) (Auto) 19.8L, Monocytes (%) (Auto) 5.7, Eosinophils (%) (Auto) 0.1, Basophils (%) (Auto) 0.4, Prothrombin Time 10.6, Prothromb Time International Ratio 1.0, Activated Partial Thromboplast Time 26, Sodium Level 143, Potassium Level 4.2, Chloride Level 106, Carbon Dioxide Level 26, Anion Gap 11, Blood Urea Nitrogen 8 , Creatinine 0.7, Estimat Glomerular Filtration Rate > 60, Glucose Level 136H, Calcium Level 8.6, Total Bilirubin 0.8, Aspartate Amino Transf (AST/SGOT) 84H, Alanine Aminotransferase (ALT/SGPT) 206H, Alkaline Phosphatase 161H, Total Protein 7.1, Albumin 3.3L, Globulin 3.8, Albumin/Globulin Ratio 0.9L, Amylase Level 82, Lipase 82 Height (Feet): 5 Height (Inches): 1.00 Weight (Pounds): 168 General Appearance: alert EENT: normal ENT inspection Neck: supple Cardiovascular: normal rate Respiratory/Chest: decreased breath sounds Abdomen: soft Extremities: non-tender Kev Gross MD Aug 27, 2019 09:15
[2019-08-27] MEDS ORDERED: oxyCODONE HCL/Acetaminophen 5/325mg ORAL PRN (10:00)
--- NOTE | 2019-08-27 10:01 | NUR ---
NURSE NOTES: patient c/o itching on general body and rash on thigh since taking [place] 10/325 tab for pain. Seen bby Dr. Garza and received order D/C norco, give Percocet 5/325 tab po prn Q4hr for moderate pain, 10/325mg tab po prn q4hrs for severe pain. order noted and carried out.
--- NOTE | 2019-08-27 10:30 | NUR ---
PT NOTES Radha.Payal order received for PT evaluation. PT evaluation completed. Patient is safe and independent with bed mobility, transfers, gait and stairs. Patient is safe to discharge home and reports was already cleared by [facility] at this time.
--- NOTE | 2019-08-27 11:45 | NUR ---
CASE MANAGEMENT:REVIEW SI;POD #1 CHOLECYSTECTOMY 98.1 57 20 95/52 96% ON RA WBC 14.6 AST 84 ALT 206 ALK PHOS 161 IS; ZOFRAN IV BENADRYL PO PERCOCET PO Q4 HRS PRN MORPHINE IV Q4 HRS PRN MED SURG STATUS DCP;FROM HOME
[2019-08-27] MEDS ORDERED: COLACE100 MG ORAL (11:59)
[2019-08-27 12:00] VITALS: BP 116/76
--- NOTE | 2019-08-27 12:04 | Discharge Summary ---
Discharge Summary Hospital Course Date of Admission Aug 24, 2019 at 12:22 Date of Discharge Admitting Diagnosis pancreatitis HPI Sonia Mansfield is a 38 year old female who was admitted on Aug 24, 2019 at 12:22 for Pancreatitis. S: pt POD #1, passing gas, tolerating diet, minimal abd pain. General: NAD, A&O x 3 HEENT: NCAT, EOMi, PEERLA, nares patent and no symmetrical, no tonsillar exudates, mucous membranes moist CV: RRR, no murmurs, rubs, or gallops Pulm: CTAB, No wheezes, rhonchi, or rales, no accessory muscle usage or conversational dyspnea GI: Soft, nontender, nondistended, bowel sounds present Neuro: CN 2-12 grossly intact bilaterally, no focal signs. Ext: No lower extremity edema bilaterally Skin: no rashes lesions or ulcers Msk: Joints symmetrical in upper extremity and lower extremity bilaterally, no joint swelling. Lymph: No lymphadenopathy in upper extremity and lower extremity Hospital Course 38 year old woman with mild obesity who presented to ED with abdominal pain radiating to her back. On admission patient was found to have elevated LFTs, lipase 1000, elevated T bili, patient was found to have gallstone pancreatitis, IV fluids were initiated, GI and general surgery were consulted. Patient symptomatically improved, patient went to the OR on 08/25 for laparoscopic cholecystectomy. Patient tolerated surgery well, POD #1 patient with decreased pain, +BS, gas, tolerating diet, ambulating well. LFTs, lipase all downtrending. Patient with mild elevated WBC, 14, no F/C, S OB, fevers, likely post op. Patient stable for DC, instructed to follow-up with PCP and general surgery as o/p. DC planning >30 mins Time of note doesn't reflect time of encounter. Discharge Medications New Medications: Docusate Sodium* (Colace*) 100 Mg Capsule 100 MG ORAL TWICE A DAY for 14 Days, #28 CAP Discharge Condition Upon Discharge: stable Discharge Vital Signs Last Vital Signs Date Time Temp Pulse Resp B/P (MAP) Pulse Ox O2 Delivery O2 Flow Rate FiO2 08/27/19 09:00 Room Air 08/27/19 08:00 98.0 77 20 115/67 (83) 98 08/26/19 14:25 3 Discharge Disposition Patient was discharged to home Discharge Diagnoses: (1) Gallstone (2) Pancreatitis (3) Acute gallstone pancreatitis Parish Garza M.D. Aug 27, 2019 12:04
--- NOTE | 2019-08-27 12:05 | Discharge Instructions ---
Discharge Instructions Discharge Instructions Follow up with: PCP and General Surgeon Dr. Billy for f/u in 1 week. Call MD/Return to Hospital if: symptoms worsen. For Congestive Heart Failure Reminder Report to your physician any weight gain of 5 pounds or more in one week. Parish Garza M.D. Aug 27, 2019 12:05
--- NOTE | 2019-08-27 12:18 | Surgery Progress Note ---
Surgery Progress Note Subjective Procedure Performed lap ashwini Additional Comments doing well post op tolerating diet flatus wants to go home Objective Last 24 Hour Vital Signs Date Time Temp Pulse Resp B/P (MAP) Pulse Ox O2 Delivery O2 Flow Rate FiO2 08/27/19 12:00 98.0 80 19 116/76 (89) 99 08/27/19 09:00 Room Air 08/27/19 08:00 98.0 77 20 115/67 (83) 98 08/27/19 06:57 57 18 97 08/27/19 04:00 98.1 57 18 96/59 (71) 97 08/27/19 00:00 98.1 83 16 95/52 (66) 96 08/26/19 21:00 Room Air 08/26/19 20:00 98.2 78 20 100/56 (71) 96 08/26/19 18:07 98.3 08/26/19 16:00 98.3 81 18 112/66 (81) 99 08/26/19 14:50 98.2 89 20 112/62 (79) 100 08/26/19 14:31 98.1 08/26/19 14:25 98.1 89 18 105/63 100 Nasal Cannula 3 08/26/19 14:15 79 15 107/63 100 Nasal Cannula 3 08/26/19 14:10 98.5 08/26/19 14:01 89 16 112/64 100 Nasal Cannula 3 08/26/19 13:52 90 20 109/61 100 Nasal Cannula 3 08/26/19 13:42 75 18 117/63 100 Simple Mask 6 08/26/19 13:38 74 20 111/66 100 Simple Mask 6 08/26/19 13:35 86 16 100 08/26/19 13:33 98.5 85 27 113/70 100 Simple Mask 6 I&O Intake and Output 08/26/19 08/27/19 19:00 07:00 Intake Total 2247.5 ml 332.5 ml Output Total 10 ml Balance 2237.5 ml 332.5 ml Intake Oral 480 ml IV Total 1767.5 ml 82.5 ml Other 250 ml Output Estimated Blood Loss 10 ml # Voids 2 2 Dressing: dry Wound: clean Cardiovascular: RSR Respiratory: clear Abdomen: soft, non-tender, present bowel sounds Extremities: no edema, no tenderness, no cyanosis Laboratory Tests Test 08/27/19 05:40 White Blood Count 14.6 K/UL (4.8-10.8) H Red Blood Count 3.84 M/UL (4.20-5.40) L Hemoglobin 11.0 G/DL (12.0-16.0) L Hematocrit 32.5 % (37.0-47.0) L Mean Corpuscular Volume 85 FL (80-99) Mean Corpuscular Hemoglobin 28.7 PG (27.0-31.0) Mean Corpuscular Hemoglobin Concent 33.8 G/DL (32.0-36.0) Red Cell Distribution Width 12.3 % (11.6-14.8) Platelet Count 307 K/UL (150-450) Mean Platelet Volume 6.6 FL (6.5-10.1) Neutrophils (%) (Auto) 74.2 % (45.0-75.0) Lymphocytes (%) (Auto) 19.8 % (20.0-45.0) L Monocytes (%) (Auto) 5.7 % (1.0-10.0) Eosinophils (%) (Auto) 0.1 % (0.0-3.0) Basophils (%) (Auto) 0.4 % (0.0-2.0) Prothrombin Time 10.6 SEC (9.30-11.50) Prothromb Time International Ratio 1.0 (0.9-1.1) Activated Partial Thromboplast Time 26 SEC (23-33) Sodium Level 143 MMOL/L (136-145) Potassium Level 4.2 MMOL/L (3.5-5.1) Chloride Level 106 MMOL/L (98-107) Carbon Dioxide Level 26 MMOL/L (21-32) Anion Gap 11 mmol/L (5-15) Blood Urea Nitrogen 8 mg/dL (7-18) Creatinine 0.7 MG/DL (0.55-1.30) Estimat Glomerular Filtration Rate > 60 mL/min (>60) Glucose Level 136 MG/DL (74-106) H Calcium Level 8.6 MG/DL (8.5-10.1) Total Bilirubin 0.8 MG/DL (0.2-1.0) Aspartate Amino Transf (AST/SGOT) 84 U/L (15-37) H Alanine Aminotransferase (ALT/SGPT) 206 U/L (12-78) H Alkaline Phosphatase 161 U/L (46-116) H Total Protein 7.1 G/DL (6.4-8.2) Albumin 3.3 G/DL (3.4-5.0) L Globulin 3.8 g/dL Albumin/Globulin Ratio 0.9 (1.0-2.7) L Amylase Level 82 U/L (25-115) Lipase 82 U/L (73-393) Plan Problems: (1) Acute gallstone pancreatitis Assessment & Plan: 38F acute gallstone pancreatitis afebrile, HD stable lft's noted lip noted US noted MRI noted npo iv fluids iv abx trend labs discussed with patient care and plan. she is very clear that she does not feel comfortable with another episode and would prefer surgical intervention prior to d/c once improved plan for lap vs open chlole thank you will follow with recs The biliary ducts are not dilated within the liver or at the level of the pancreas and nj hepatis. The CBD is normal in caliber. A portion of the mid CBD is not seen which is likely related to breathing artifact. There are multiple gallstones present. Pancreas is unremarkable. There are no signs of pancreatitis on this study. (Lipase is more sensitive then cross-sectional imaging for acute pancreatitis). There is a 2.8 cm cyst in the right lobe of the liver. There is no free fluid. IMPRESSION: No biliary ductal dilatation or evidence of choledocholithiasis. Short segment of the mid CBD not seen likely related to breathing artifact. Cholelithiasis. 2.8 cm liver cyst. s/p lap ashwini doing well cholangiogram clear labs improving lfts improved no n/v/f/c tolerating diet rx written f/u given d/c home care instructions given Ruben Billy Aug 27, 2019 12:18
--- NOTE | 2019-08-27 14:54 | NUR ---
NURSE NOTES: patient discharged to home with stable condition. no respiratory distress noted. no complications on surgical site. checked and counted belongings with patient. given dc packet. obtained sign. removed IV and ID band. given new medications from pharmacy. assisted patient to the lobby. patient left by family car.
--- NOTE | 2019-08-28 11:27 | Diagnostic Imaging Report ---
Indication: Abdominal pain Technique: Intraoperative imaging Total fluoroscopy time 34.5 seconds Total fluoroscopy dose 5.91 mGy Operating surgeon: Mariajose Total number of fluoroscopic images archived PACS: 6 Findings: Intraoperative fluoroscopic imaging archived to PACS. Images demonstrate intraoperative cholangiogram. No appreciable common bile duct filling defect is identified. There is passage of contrast through the common bile duct into the duodenum which is normal in caliber. Opacified intrahepatic ducts appear normal in caliber. Surgical clips and surgical material noted in the right upper quadrant. IMPRESSION: Intraoperative fluoroscopic imaging. Please see operative report.
== END 2019-08-27 14:59 | disposition home or self-care (01) | DRG 263 ==
LOC: EMR 10:15 → 4E 12:22 → EDBEDREQ 15:37
PROC: BF10YZZ Fluoroscopy of Bile Ducts using Other Contrast (ICD-10-PCS; 2019-08-26)
PROC: 0FT44ZZ Resection of Gallbladder, Percutaneous Endoscopic Approach (ICD-10-PCS; principal; 2019-08-26 11:30)
DX: K85.10 Biliary acute pancreatitis without necrosis or infection (principal); K80.80 Other cholelithiasis without obstruction; E66.9 Obesity, unspecified; Z68.30 Body mass index [BMI] 30.0-30.9, adult; Z88.1 Allergy status to other antibiotic agents; Z88.2 Allergy status to sulfonamides
CPT/HCPCS: 36415; 74181; 74300; 76700; 80053; 81003; 81025; 82150; 82248; 83690; 84484; 85025; 85610; 85730; 94003; 94150; 96361; 96374; 99285; J2180; J2405; J2710; J7030

== ENCOUNTER 2020-08-13 06:04 | Emergency (ER) | payer MEDICAID ==
[~2020-08-13] VITALS: Ht 157.5 cm; Wt 78.0 kg
[~2020-08-13 06:04] MED LIST: COLACE100 MG ORAL
--- NOTE | 2020-08-13 06:22 | NUR ---
Pte came to ER ambulatory c/o vaginal bleeding and pelvic pain rates 02/10 since today patient refers she went to the Doctor yesterday and he said she was preganant but the baby did not have cardiac sounds present. EDP evaluated the patient , new orders received and carried out. Will continue to monitor.
[2020-08-13] MEDS ORDERED: Morphine Sulfate 2mg/ml Inj(IV/IM USE ONLY) IVP ONE (06:30)
--- NOTE | 2020-08-13 06:32 | Emergency Room Report ---
History of Present Illness General Chief Complaint: Complications Source: Patient Present Illness HPI Patient presents with vaginal bleeding and lower abdominal pain. This began at 3 AM. She sat on the toilet for 2 hours and there was continued bleeding and she believes she passed tissue. She is used 3 pads since that time. She still passing clot material. She also states she feels some weakness and dizziness at this time when she stands. She rates the pain 8/10 at this time radiating towards her back. Feels like contractions to her. Patient was seen by her OB yesterday. Her last menstruation was May 14 which would put her at 13 weeks. She has had 2 ultrasounds done in the last few weeks. Both times doctor said she was 7 weeks . Yesterday there was no heart tones. The patient denies any fevers or upper respiratory illness. She denies any exposure to Covid positive contacts. She lost her father last month which she believes caused stress. She does not know her blood type. No sore throat, chest pain, palpitations, nausea, vomiting, diarrhea, dysuria, shortness of breath, joint pain, rashes, headache. Allergies: Coded Allergies: SULFAMETHOXAZOLE (Verified Allergy, Unknown, 08/24/19) TRIMETHOPRIM (Verified Allergy, Unknown, 08/24/19) Uncoded Allergies: SULFA (Allergy, Unknown, 08/24/19) COVID-19 Screening Contact w/high risk pt: No Recent Travel to affected area: No Experienced COVID-19 symptoms?: No COVID-19 Testing performed FUSION JUNCTURE GRINDER: No Patient History Past Medical History: see triage record, other - gallstone pancreatitis Social History: Denies: alcohol use, drug use Social History Narrative , has 6 yo at home Last Menstrual Period: 05/14/20 Now: Yes : 2 Para: 1 Reviewed Nursing Documentation: PMH: Agreed; PSxH: Agreed Nursing Documentation-PMH Hx Cardiac Problems: No Hx Cancer: No Hx Gastrointestinal Problems: Yes Hx Neurological Problems: No Review of Systems All Other Systems: negative except mentioned in HPI Physical Exam Vital Signs Date Time Temp Pulse Resp B/P (MAP) Pulse Ox O2 Delivery O2 Flow Rate FiO2 08/13/20 06:15 97.7 88 20 99/66 (77) 100 Room Air Sp02 EP Interpretation: reviewed, normal General Appearance: well appearing, no apparent distress, GCS 15, non-toxic Head: normocephalic Eyes: bilateral eye normal inspection, bilateral eye PERRL, bilateral eye EOMI ENT: moist mucus membranes Neck: supple Respiratory: lungs clear, normal breath sounds Cardiovascular #1: regular rate, rhythm Cardiovascular #2: 2+ radial (R) Gastrointestinal: normal inspection, normal bowel sounds, non tender - Or reported tenderness suprapubic area with contraction-like pain, no mass, non- distended, no guarding, no rebound Genitourinary: no CVA tenderness, adnexa normal, ext genitalia/vag normal - With blood, urethra normal, other - Proximal of conception in the os and blood in the vaginal area Musculoskeletal: back normal, normal range of motion, gait/station normal Neurologic: alert, oriented x3, grossly normal Psychiatric: mood/affect normal Skin: no rash, warm/dry Procedures Additional Procedure Procedure Narrative During pelvic exam tissue removed from os with ease. Continued bleeding, mainly losing. Tissue sent to lab. Patient tolerated the procedure well. Medical Decision Making Diagnostic Impression: Primary Impression: Complete miscarriage ER Course Patient presents with vaginal bleeding supposedly 13 weeks with recent ultrasound that showed no heart tones and is size of 7 weeks. Differential includes threatened miscarriage, complete miscarriage, inevitable miscarriage. Patient evaluated with blood work and ultrasound. Pelvic exam will be performed. Patient will be given IV fluids and also treated with analgesia. Slight leukocytosis. H/H no anemia. K slightly low. Quant 637. See procedure: tissue removed from os. Tolerated well. Charge nurse in attendance. Ultrasound with only blood in uterus. Possible ovarian cystic structure L. Pain decreased and no excessive bleeding. Awaiting blood type and Rh. 756 Patient slightly dizzy standing but much improved. One clot passed. NS 1 liter given. 825 Blood type O+. Second liter of saline infused. Patient markedly improved and decreased pain. Discussed results and expected course. Patient stable for outpatient observation and treatment. Laboratory Tests Test 08/13/20 06:30 White Blood Count 12.7 K/UL (4.8-10.8) H Red Blood Count 4.37 M/UL (4.20-5.40) Hemoglobin 12.3 G/DL (12.0-16.0) Hematocrit 38.0 % (37.0-47.0) Mean Corpuscular Volume 87 FL (80-99) Mean Corpuscular Hemoglobin 28.1 PG (27.0-31.0) Mean Corpuscular Hemoglobin Concent 32.4 G/DL (32.0-36.0) Red Cell Distribution Width 13.1 % (11.6-14.8) Platelet Count 332 K/UL (150-450) Mean Platelet Volume 7.3 FL (6.5-10.1) Neutrophils (%) (Auto) 69.7 % (45.0-75.0) Lymphocytes (%) (Auto) 25.0 % (20.0-45.0) Monocytes (%) (Auto) 4.1 % (1.0-10.0) Eosinophils (%) (Auto) 0.6 % (0.0-3.0) Basophils (%) (Auto) 0.6 % (0.0-2.0) Prothrombin Time 11.3 SEC (9.30-11.50) Prothrombin Time INR 1.0 (0.9-1.1) Activated Partial Thromboplast Time 25 SEC (23-33) Urine Color Red Urine Appearance Turbid Urine pH 5 (4.5-8.0) Urine Specific [place] 1.025 (1.005-1.035) Urine Protein 4+ (NEGATIVE) H Urine Glucose (UA) Negative (NEGATIVE) Urine Ketones 1+ (NEGATIVE) H Urine Blood 5+ (NEGATIVE) H Urine Nitrite Negative (NEGATIVE) Urine Bilirubin Negative (NEGATIVE) Urine Urobilinogen Normal MG/DL (0.0-1.0) Urine Leukocyte Esterase 1+ (NEGATIVE) H Urine RBC Tntc /HPF (0 - 2) H Urine WBC 2-4 /HPF (0 - 2) Urine Squamous Epithelial Cells Occasional /LPF Urine Calcium Oxalate Crystals Moderate /LPF (NONE) Urine Bacteria Few /HPF (NONE) Sodium Level 139 MMOL/L (136-145) Potassium Level 3.4 MMOL/L (3.5-5.1) L Chloride Level 102 MMOL/L (98-107) Carbon Dioxide Level 25 MMOL/L (21-32) Anion Gap 12 mmol/L (5-15) Blood Urea Nitrogen 9 mg/dL (7-18) Creatinine 0.8 MG/DL (0.55-1.30) Estimated Glomerular Filtration Rate > 60 mL/min (>60) Glucose Level 120 MG/DL (74-106) H Calcium Level 8.9 MG/DL (8.5-10.1) Total Bilirubin 0.3 MG/DL (0.2-1.0) Aspartate Amino Transferase (AST) 13 U/L (15-37) L Alanine Aminotransferase (ALT) 26 U/L (12-78) Alkaline Phosphatase 95 U/L (46-116) Total Protein 7.7 G/DL (6.4-8.2) Albumin 3.8 G/DL (3.4-5.0) Globulin 3.9 g/dL Albumin/Globulin Ratio 1.0 (1.0-2.7) Lipase 85 U/L (73-393) Human Chorionic Gonadotropin, Quant 637 mIU/mL (1-6) H CT/MRI/US Diagnostic Results CT/MRI/US Diagnostic Results : Imaging Test Ordered: Pelvic ultrasound Impression No evidence of intrauterine . Differential diagnostic considerations include too early be visualized by ultrasound, missed or nonvisualized ectopic . Correlation with serial beta hCGs and/or follow-up ultrasound recommended. Last Vital Signs Date Time Temp Pulse Resp B/P (MAP) Pulse Ox O2 Delivery O2 Flow Rate FiO2 08/13/20 08:00 97.8 78 18 130/80 98 Room Air Status: improved Disposition: HOME, SELF-CARE Condition: Improved Referrals: [facility],REFERRING (PCP) Flaquito Johnson MD Aug 13, 2020 06:32
--- NOTE | 2020-08-13 06:41 | NUR ---
Blood and urine were sent to the lab . Pain medication administred without any adverse effects. Will continue to monitor.
[2020-08-13 06:55] LABS: ANION GAP 12 mmol/L (5-15); BLOOD UREA NITROGEN 9 mg/dL (7-18); CALCIUM 8.9 MG/DL (8.5-10.1); CARBON DIOXIDE 25 MMOL/L (21-32); CHLORIDE 102 MMOL/L (98-107); CREATININE 0.8 MG/DL (0.55-1.30); POTASSIUM 3.4 MMOL/L (3.5-5.1); SODIUM 139 MMOL/L (136-145)
[2020-08-13 07:00] LABS: ALANINE AMINOTRANSFERASE 26 U/L (12-78); ALBUMIN 3.8 G/DL (3.4-5.0); ALKALINE PHOSPHATASE 95 U/L (46-116); ASPARTATE AMINO TRANSFERASE 13 U/L (15-37); BILIRUBIN,TOTAL 0.3 MG/DL (0.2-1.0)
--- NOTE | 2020-08-13 07:00 | NUR ---
pelvic exam done by dr rivera tissue removed from the vagina bleeding small amount specomen to pathology
[2020-08-13 07:04] LABS: APPEARANCE,URINE TURBID; BILIRUBIN, URINE NEGATIVE (NEGATIVE); GLUCOSE, URINE (UA) NEGATIVE (NEGATIVE); KETONES,URINE 1+ (NEGATIVE); LEUKOCYTE ESTERASE ,URINE 1+ (NEGATIVE); NITRITE,URINE NEGATIVE (NEGATIVE); PH,URINE 5 (4.5-8.0); PROTEIN,URINE 4+ (NEGATIVE); UROBILINOGEN,URINE NORMAL MG/DL (0.0-1.0)
[2020-08-13 07:05] LABS: BASOPHILS % (AUTO) 0.6 % (0.0-2.0); EOSINOPHILS % (AUTO) 0.6 % (0.0-3.0); HEMOGLOBIN 12.3 G/DL (12.0-16.0); MEAN CORPUSCULAR VOLUME 87 FL (80-99); MONOCYTES % (AUTO) 4.1 % (1.0-10.0); NEUTROPHILS % (AUTO) 69.7 % (45.0-75.0); PLATELET COUNT 332 K/UL (150-450); RED BLOOD COUNT 4.37 M/UL (4.20-5.40); RED CELL DISTRIBUTION WIDTH 13.1 % (11.6-14.8); WHITE BLOOD COUNT 12.7 K/UL (4.8-10.8)
[2020-08-13 07:08] LABS: COLOR,URINE RED
--- NOTE | 2020-08-13 07:51 | Diagnostic Imaging Report ---
EXAM: US First Trimester , Transabdominal and Transvaginal CLINICAL HISTORY: ABD PAIN TECHNIQUE: Real-time transabdominal and transvaginal obstetrical ultrasound of the maternal pelvis and a first trimester with image documentation. Transvaginal imaging was used for better evaluation of the fetus and adnexa. COMPARISON: No relevant prior studies available. FINDINGS: Gestation: There is no evidence of intrauterine . Uterus/cervix: Uterus is normal in size being 8.8 cm in length. The endometrium is mildly thickened measuring 10 mm. No endometrial or myometrial mass. Ovaries: There are 2 simple appearing cysts identified in the left ovary. The largest measures 4.0 cm in diameter. The smaller measures 2.7 cm in diameter. These are likely physiologic. The right ovary is not visualized. No right adnexal mass or fluid collection notified. No free pelvic fluid seen. Free fluid: No free fluid. IMPRESSION: No evidence of intrauterine . Differential diagnostic considerations include too early be visualized by ultrasound, missed or nonvisualized ectopic . Correlation with serial beta hCGs and/or follow-up ultrasound recommended.
[2020-08-13 07:58] VITALS: BP 94/52
--- NOTE | 2020-08-13 07:58 | NUR ---
report vitals to ER provider
[2020-08-13 08:00] VITALS: BP 130/80
== END 2020-08-13 08:30 | disposition home or self-care (01) ==
LOC: EMR 06:21
DX: O03.9 Complete or unspecified spontaneous abortion without complication (principal); Z88.2 Allergy status to sulfonamides; Z88.1 Allergy status to other antibiotic agents
CPT/HCPCS: 36415; 76801; 76817; 80053; 81003; 83690; 84702; 85025; 85610; 85730; 86850; 86900; 86901; 96361; 96374; 96375; J2270; J2405; J7030; Z7502; 99284